=== PATIENT | male | born 1945 | race Caucasian/White ===

== ENCOUNTER → 2016-03-28 | Outpatient (CLI) | payer OTHER, MEDICARE ==
[2016-03-28 08:40] LABS: HEMOGLOBIN A1C 7.07 % (4.2-6.0); MEAN BLOOD GLUCOSE (CALC) 149.431 mg/dL
[2016-03-28 08:49] LABS: LDL CHOLESTEROL,CALCULATED 108.6 mg/dL
[2016-03-28 08:50] LABS: ASPARTATE AMINO TRANSFERASE 20 IU/L (21-57); BILIRUBIN,TOTAL 1.2 mg/dL (0.3-1.2); BLOOD UREA NITROGEN 10 mg/dL (7-22); BUN/CREATININE RATIO 14.28 (6-20); CALCIUM 9.4 mg/dL (8.7-10.7); CHLORIDE 104 meq/L (98-112); CREATININE 0.7 mg/dL (0.70-1.50); EST GLOMERULAR FILTRATION > 60 (>60 ml/min/1.73m(2)); GLUCOSE 150 mg/dL (78-110); POTASSIUM 4.3 meq/L (3.8-5.2); SODIUM 138 meq/L (135-145); TOTAL PROTEIN 6.8 g/dL (6.1-8.0)
== END ==
LOC: MOB LAB 07:54
PROVIDERS: ATTEND Family Medicine
DX: E11.9 Type 2 diabetes mellitus without complications (principal); E78.5 Hyperlipidemia, unspecified; I10 Essential (primary) hypertension; R53.82 Chronic fatigue, unspecified; R41.3 Other amnesia; Z86.73 Personal history of transient ischemic attack (TIA), and cerebral infarction without residual deficits
CPT/HCPCS: 36415; 80053; 80061; 83036; 99214; G0463

== ENCOUNTER → 2016-04-18 | Outpatient (CLI) | payer OTHER, MEDICARE | LOC: MMPC 10:00 | PROVIDERS: ATTEND Podiatrist Foot & Ankle Surgery | DX: B35.1 Tinea unguium (principal); L60.3 Nail dystrophy; E11.9 Type 2 diabetes mellitus without complications | CPT/HCPCS: 11720 ×2; G0463 ==

== ENCOUNTER → 2016-06-26 | Outpatient (CLI) | payer OTHER, MEDICARE ==
[2016-06-26 07:04] LABS: BASOPHILS # (AUTO) 0.04 10*3/UL; BASOPHILS % (AUTO) 0.6 % (0-1); EOSINOPHILS # (AUTO) 0.41 10*3/UL; EOSINOPHILS % (AUTO) 5.8 % (0-8); HEMATOCRIT 42.1 % (42.0-52.0); HEMOGLOBIN 15.2 g/dL (14.0-18.0); LYMPHOCYTES # (AUTO) 2.03 10*3/uL; MEAN CORPUSCULAR HGB CONC 36.1 g/dL (33-37); MEAN CORPUSCULAR VOLUME 85.9 FL (80-90); MEAN PLATELET VOLUME 10.4 FL (7.4-12.2); MONOCYTES # (AUTO) 0.66 10*3/UL (0.3-0.8); MONOCYTES % (AUTO) 9.3 % (5-15); NEUTROPHILS # (AUTO) 3.94 10*3/UL; NEUTROPHILS % (AUTO) 55.6 % (50-80)
[2016-06-26 07:06] LABS: PLATELET MORPHOLOGY COMMENT NORMAL MORPHOLOGY (NORM); RBC MORPHOLOGY COMMENT NORMAL MORPHOLOGY (NORM); WBC MORPHOLOGY COMMENT NORMAL MORPHOLOGY (NORM)
[2016-06-26 07:11] LABS: HEMOGLOBIN A1C 7.19 % (4.2-6.0)
[2016-06-26 07:21] LABS: BUN/CREATININE RATIO 17.14 (6-20); LDL CHOLESTEROL,CALCULATED 86.4 mg/dL; SERUM ALBUMIN 3.8 g/dL (3.5-4.8)
[2016-06-26 07:55] LABS: FREE T4 (FREE THYROXINE) 1.3 ng/dL (0.93-1.71)
[2016-06-26 07:56] LABS: VITAMIN D 25-HYDROXY 38.8 NG/ML (30-100)
[2016-06-26 07:57] LABS: ERYTHROCYTE SEDIMENTATION RATE 2 MM/HR (0-15)
== END ==
LOC: LAB 06:44
PROVIDERS: ATTEND Family Medicine
DX: E11.9 Type 2 diabetes mellitus without complications (principal); E78.5 Hyperlipidemia, unspecified; I10 Essential (primary) hypertension; R41.3 Other amnesia; R53.82 Chronic fatigue, unspecified; Z86.73 Personal history of transient ischemic attack (TIA), and cerebral infarction without residual deficits
CPT/HCPCS: 36415; 80053; 80061; 82306; 82607; 83036; 83880; 84439; 84443; 85025; 85652; G0103; 99213

== ENCOUNTER → 2016-07-18 | Outpatient (CLI) | payer OTHER, MEDICARE | LOC: MMPC 10:00 | PROVIDERS: ATTEND Podiatrist Foot & Ankle Surgery | DX: B35.1 Tinea unguium (principal); E11.9 Type 2 diabetes mellitus without complications | CPT/HCPCS: 99212; G0463 ==

== ENCOUNTER 2016-08-11 07:36 | Inpatient (IN) | payer OTHER, MEDICARE ==
[2016-08-11] MEDS ORDERED: Sodium Chloride 0.9% 1,000 ML PRIMARY IV ONE (07:59)
[2016-08-11] MEDS ORDERED: NORMAL SALINE 10 ML SYRINGE FLUSH IVP PRN ×2 (07:59→10:48)
[2016-08-11 08:36] LABS: HEMOGLOBIN 16.2 g/dL (14.0-18.0); RED BLOOD COUNT 5.31 10^6/uL (4.70-6.10)
[2016-08-11 08:37] LABS: HEMATOCRIT 45.7 % (42.0-52.0); MEAN CORPUSCULAR HEMOGLOBIN 30.5 PG (27-31); MEAN CORPUSCULAR HGB CONC 35.4 g/dL (33-37); MEAN CORPUSCULAR VOLUME 86.1 FL (80-90); MEAN PLATELET VOLUME 10.8 FL (7.4-12.2)
[2016-08-11 08:38] LABS: BASOPHILS # (AUTO) 0.03 10*3/UL; BASOPHILS % (AUTO) 0.2 % (0-1); EOSINOPHILS # (AUTO) 0.04 10*3/UL; EOSINOPHILS % (AUTO) 0.3 % (0-8); MONOCYTES # (AUTO) 0.92 10*3/UL (0.3-0.8); MONOCYTES % (AUTO) 7.4 % (5-15); NEUTROPHILS # (AUTO) 10.39 10*3/UL; NEUTROPHILS % (AUTO) 83.1 % (50-80); PLATELET MORPHOLOGY COMMENT NORMAL MORPHOLOGY (NORM); RBC MORPHOLOGY COMMENT NORMAL MORPHOLOGY (NORM); WBC MORPHOLOGY COMMENT NORMAL MORPHOLOGY (NORM)
[2016-08-11 08:41] LABS: BLOOD UREA NITROGEN 19 mg/dL (7-22); BUN/CREATININE RATIO 21.11 (6-20)
[2016-08-11 08:42] LABS: CALCIUM 9.2 mg/dL (8.7-10.7)
[2016-08-11 08:43] LABS: C-REACTIVE PROTEIN 3.2 mg/dL (0.0-0.9); MAGNESIUM 0.9 mg/dL (1.6-2.4)
[2016-08-11] MEDS ORDERED: Ertapenem Inj 1 GM in Sodium Chloride 0.9% 100 ML IV ONE (09:07)
--- NOTE | 2016-08-11 09:15 | DI ---
HISTORY: Cough and rales on the right side. COMPARISON: 10/02/2015. TECHNIQUE: Two (2) images were obtained. FINDINGS: There is dense consolidation in the right perihilar region extending into the right mid an d lower zones. The cardiac silhouette is not enlarged. Midline sternotomy noted. Lower cervical spine ACDF is part ially imaged. IMPRESSION: 1. There is dense consolidation in the right perihilar region extending into the right mid and lower zones. Follow-up to resolution is warranted. 2. Midline sternotomy noted. 3. Lower cervical spine ACDF is partially imaged.
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
[2016-08-11 10:34] LABS: COLOR,URINE YELLOW; URINE SAMPLE TYPE CLEAN CATCH URINE
[2016-08-11 10:35] LABS: BILIRUBIN,URINE NEGATIVE (NEG); CLARITY,URINE SLIGHTLY CLOUDY (CLEAR); GLUCOSE, URINE (UA) 500 mg/dL (NEG); NITRATE,URINE NEGATIVE (NEG); OCCULT BLOOD,URINE NEGATIVE (NEG); PH,URINE 5.5 (5.0-8.5); PROTEIN,URINE TRACE mg/dl (NEG); UROBILINOGEN,URINE 0.2 EU/dL (0.2)
[2016-08-11] MEDS ORDERED: ONDANSETRON 4 MG/2 ML VIAL IV PRN (10:48)
[2016-08-11] MEDS ORDERED: LIDOCAINE W/ SODIUM BICARB 0.5 ML SYR SUBD PRN (10:48)
[2016-08-11] MEDS ORDERED: ALBUTEROL SULFATE 2.5 MG/3 ML NEB PRN (10:48)
--- NOTE | 2016-08-11 11:51 | DI ---
HISTORY: Cough and dyspnea with high risk for PE. COMPARISON: 10/02/2015. TECHNIQUE: CT images were obtained through the chest with IV contrast. FINDINGS: There is diffuse airspace disease in the right lung. There is no pulmonary embolism. There is a large consolidation in the right lower lobe most consistent with pneumonia. There are some calcified pleural plaques in the right lung base medially. There are multiple coronary artery calcifications. Diffuse degenerative changes of the spine. IMPRESSION: 1. No evidence of pulmonary embolism. 2. Large right lower lobe pneumonia.
[2016-08-11] MEDS ORDERED: Clindamycin 900mg (Premix) 900 MG in Dextrose 1 BAG IV SCH (12:00)
[2016-08-11] MEDS: Calcium/Vit D 600mg/400u Tab 1 TAB TABLET PO SCH (12:37)
[2016-08-11] MEDS: Beta Carot W/Vit E,C,Min Tab 1 TAB TAB PO SCH ×2 (12:38→20:27)
[2016-08-11] MEDS: ASPIRIN 81 MG (BABY) CHEWABLE TABLET PO SCH (12:38)
[2016-08-11] MEDS: cefTRIAXone Inj 2 GM in Sodium Chloride 0.9% 100 ML IV SCH (12:42)
[2016-08-11] MEDS ORDERED: metroNIDAZOLE 500mg (Premix) 500 MG in Premix 1 BAG IV SCH (13:00)
--- NOTE | 2016-08-11 13:08 | PDOC ---
History and Physical - History of Present Illness Date and Time of Service: 08/03/2016, 1305 Chief Complaint: Chills and weakness History of Present Illness: This a very pleasant 71-year-old male who has a history of stroke with subsequent confusion and left hemiplegia, mild, diabetes mellitus type II, hypertension, and dementia. He comes in today accompanied by his as he was complaining of being very chilled and cold and weak. He has had this happen before and has been diagnosed with pneumonia in the past. On his prior admission for pneumonia in 2015, the patient was found to have some aspiration problems and did some therapy to try and help those issues. He does not report a lot of coughing or choking at home when he eats, and his also states that she does not notice this at all. I had the patient actually visit with surgery regarding what I thought was a paraesophageal hernia, but actually turned out to be a hiatal hernia with Schatzki's ring. The patient was not having any swallowing difficulties at that time and no EGD or dilation was done. The actual swallow evaluation on the radiology site showed no aspiration in September 2015 on my review of the record. Today, the patient was found to have a very large right lower lobe pneumonia on chest x-ray and CT scan here today. He was given a dose of Invanz with the thought that this could be an aspiration pneumonia although it looks fairly lobar to me and looks very diffuse. The patient does not normally on oxygen but was found to be hypoxic here. Blood cultures and been drawn and are pending. Patient does feel slightly better after interventions in the emergency room. He did not try taking prior to coming in for evaluation and his states she didn't try anything prior to bringing him into the emergency room today. The symptoms came on very suddenly. The patient does not smoke and has not smoked in the past. The patient's noticed that the patient had a cough with creamy-like phlegm over the past few days. The patient and his state that he is up-to-date with Pneumovax and with his flu shot. Past Medical History Medical History: 1. Diabetes mellitus type II. 2. History of cerebrovascular accident with left-sided weakness. 3. Confusion, question dementia. No change on Aricept. 4. Hypertension. 5. Coronary artery disease status post stent in the past. 6. obstructive sleep apnea with non-tolerance of CPAP therapy. 7. Status post aortic valve replacement (bovine) Surgical History: 1. Coronary stent placed. 2. Aortic valve replacement. 3. Back surgery. 4. Knee replacement on the right side Pertinent Family History: Significant for congestive heart failure in his mother and history of stroke in his sister Past Social History: Does not smoke or drink. for 35 years. Has children described as healthy. Tobacco Use: Never Smoker Substance Use Type: None Alcohol Use: None Medication / Allergies Home Medications: Home Medications Medication Instructions Recorded Confirmed Type Aspirin [Baby Aspirin] 2 tab ORAL QD tab 09/05/10 08/11/16 History Diphenhydramine HCl [Benadryl] 1 cap PO HS 01/31/12 08/11/16 History Docusate Sodium [Colace] 1 cap ORAL BID capsule 01/31/12 08/11/16 History Multivitamin [Daily Vitamin] 1 tab ORAL QD tab 01/31/12 08/11/16 History Calcium Carb & Citrate/Vit D3 1 each PO DAILY 09/10/12 08/11/16 History [Calcium + D3 ER Tablet] Walker [Ultra-Light Rollator] 1 each MC ONCE #1 each 10/26/14 08/11/16 Clinic Vit C/E/Zn/Coppr/Lutein/Zeaxan 1 each PO BID cap 06/26/15 08/11/16 History [Preservision Areds 2 Softgel] Clotrimazole 1 applic TOPICAL BID #60 tube 09/25/15 08/11/16 Clinic Ciclopirox 6.6 ml TOPICAL DAILY #1 bottle 01/25/16 08/11/16 Clinic Terbinafine HCl [Terbinafine] 15 gm TOPICAL BID #1 tube 01/25/16 08/11/16 Clinic Metoprolol Tartrate 1 tab ORAL BID #180 tab 03/04/16 08/11/16 Clinic Amlodipine Besylate [Norvasc] 1 tab PO QD #90 tab 05/14/16 08/11/16 Clinic Omeprazole 1 cap PO QHS #90 cap 05/14/16 08/11/16 Clinic Pravastatin Sodium [Pravachol] 1 tab PO QHS #90 tab 05/14/16 08/11/16 Clinic Solifenacin Succinate [Vesicare] 1 tab ORAL QD #90 tab 05/14/16 08/11/16 Clinic Dapagliflozin Propanediol [Farxiga] 5 mg PO QD #90 tab 06/07/16 08/11/16 Clinic Donepezil HCl [Aricept] 23 mg PO DAILY #90 tab 06/07/16 08/11/16 Clinic Finasteride 5 mg PO DAILY #90 tab 06/07/16 08/11/16 Clinic Linagliptin/Metformin HCl 1 tab PO BID #180 tab 06/07/16 08/11/16 Clinic [Jentadueto 2.5 Mg-1000 Mg Tab] Losartan Potassium 1 tab PO DAILY #90 tab 06/07/16 08/11/16 Clinic Tamsulosin HCl 1 tab PO QHS #90 tab 06/07/16 08/11/16 Clinic Allergies/Adverse Reactions: Allergies Allergy/AdvReac Type Severity Reaction Status Date / Time Sulfa (Sulfonamide Allergy PT UNSURE Verified 08/11/16 11:20 Antibiotics) Review of Systems - Review of Systems All Systems: Reviewed & No Additional Complaints Except as Stated (With a 12 point review systems and it was negative other than that discussed in the history of present illness and that noted below.) - Constitutional Constitutional: REPORTS: Fever/Chills, Fatigue, Weakness - Respiratory Respiratory: REPORTS: Cough (For the past few days) - Cardiovascular Cardiovascular: REPORTS: Negative System Review - Gastrointestinal Gastrointestinal / Abdominal: REPORTS: Negative System Review - Genitourinary Genitourinary: REPORTS: Negative System Review - Musculoskeletal Musculoskeletal: REPORTS: Negative System Review - Hematlogic / Lymphatic Hematologic / Lymphatic: REPORTS: Other (Edema on left lower extremity over the past year.) - Neurological Neurologic: REPORTS: Memory Loss, Difficulty Walking (Uses a cane to ambulate. Feels weak on the left side. States it's from a stroke in the past.) Exam - Vitals Vital Signs: Vital Signs Respiratory Rate 22 Pulse Ox 91 Oxygen Flow Rate 3 Oxygen Delivery Method Nasal Cannula Height 5 ft 11 in Weight 245 lb Vital Signs - Last Taken Temperature 98.5 F 08/11/16 07:51 Pulse Rate 80 08/11/16 07:51 Respiratory Rate 22 08/11/16 10:47 Blood Pressure 133/75 08/11/16 07:51 Pulse Ox 91 08/11/16 10:48 Currently on 3 L per nasal cannula - General General Appearance: POSITIVE: No Acute Distress, Cooperative, Obese - Head Head Exam: POSITIVE: Normal Inspection, Normocephalic, Atraumatic - Eye Eye Exam: POSITIVE: No Scleral Icterus - ENT ENT Exam: POSITIVE: Mucous Membranes Moist - Neck Neck Exam: POSITIVE: Normal Inspection, No Tenderness, No Thyromegaly - Respiratory Respiratory Exam: POSITIVE: Breathing Non Labored, Normal to Percussion and Palpation, Crackles (Right side) - Cardiovascular Cardiovascular Exam: POSITIVE: RRR, No Murmur, No Clicks, No Gallops, No Rubs, No JVD - GI/Abdominal GI/Abdominal Exam: POSITIVE: Normal Bowel Sounds, Non Tender, Non Distended, Soft - Rectal Rectal Exam: POSITIVE: Deferred - External Exam: POSITIVE: Deferred Exam: POSITIVE: Deferred - Extremities Extremities Exam: POSITIVE: No Clubbing Present, No Cyanosis Present, +1 Edema - Back Back Exam: POSITIVE: No CVA Tenderness - Neurological Neurological Exam: POSITIVE: Alert, Oriented x 3, No Facial Droop, Speech Intact / Clear, Moves All Extremities Equally - Psychiatric Psychiatric Exam: POSITIVE: Normal Affect, Normal Mood - Integumentary Integumentary Exam: POSITIVE: Normal Color, Warm, Dry, Intact - Central Line Examination Central Line Present on Admission: No Results - Labs CBC and BMP: 08/11/16 07:30 08/11/16 07:30 Labs - Last 24 Hours: Laboratory Results 08/11/16 08/11/16 08/11/16 Range/Units 07:30 07:59 08:10 WBC 12.51 H (4.8-10.8) 10^3/uL RBC 5.31 (4.70-6.10) 10^6/uL Hgb 16.2 (14.0-18.0) g/dL Hct 45.7 (42.0-52.0) % MCV 86.1 (80-90) FL MCH 30.5 (27-31) PG MCHC 35.4 (33-37) g/dL RDW Std Deviation 44.0 (39-50) fL RDW Coeff of Mk 14.0 (11.5-14.5) % Plt Count 218 (140-350) 10*3/uL MPV 10.8 (7.4-12.2) FL Immature Gran % (Auto) 0.2 (0-5) % Neut % (Auto) 83.1 H (50-80) % Lymph % (Auto) 8.8 L (10-50) % [place] % (Auto) 7.4 (5-15) % Eos % (Auto) 0.3 (0-8) % Baso % (Auto) 0.2 (0-1) % Immature Gran # (Auto) 0.03 10*3/UL Neut # (Auto) 10.39 10*3/UL Lymph # (Auto) 1.10 10*3/uL [place] # (Auto) 0.92 H (0.3-0.8) 10*3/UL Eos # (Auto) 0.04 10*3/UL Baso # (Auto) 0.03 10*3/UL WBC Morphology Comment Normal morphology (NORM) Plt Morphology Comment Normal morphology (NORM) RBC Morph Comment Normal morphology (NORM) D-Dimer 4.05 H (0.00-0.59) mg/L Sodium 140 (135-145) meq/L Potassium 3.7 L (3.8-5.2) meq/L Chloride 105 (98-112) meq/L Carbon Dioxide 21 L (23-33) meq/L Anion Gap 14 (5-20) BUN 19 (7-22) mg/dL Creatinine 0.9 (0.70-1.50) mg/dL Estimated GFR Fire Crew Worker BUN/Creatinine Ratio 21.11 H (6-20) Glucose 221 H (78-110) mg/dL Calculated Osmolality 298.0 H (267-292) mOsm/kg Lactic Acid 1.4 (0.70-2.10) MMOL/L Calcium 9.2 (8.7-10.7) mg/dL Magnesium 0.9 L (1.6-2.4) mg/dL Total Bilirubin 1.1 (0.3-1.2) mg/dL AST 26 (21-57) IU/L ALT 23 (21-72) IU/L Alkaline Phosphatase 91 (38-126) IU/L C-Reactive Protein 3.2 H (0.0-0.9) mg/dL Total Protein 7.1 (6.1-8.0) g/dL Albumin 4.0 (3.5-4.8) g/dL Globulin 3.1 (2.50-4.10) g/dL Albumin/Globulin Ratio 1.20 L (1.3-2.0) mg/g Ur Collection Type Clean catch urine Urine Color Yellow Urine Clarity Slightly cloudy (CLEAR) Urine pH 5.5 (5.0-8.5) Ur Specific [place] 1.005 (1.005-1.030) Urine Protein Trace (NEG) mg/dl Urine Glucose (UA) 500 (NEG) mg/dL Urine Ketones 40 (NEG) Urine Occult Blood Negative (NEG) Urine Nitrate Negative (NEG) Urine Bilirubin Negative (NEG) Urine Urobilinogen 0.2 (0.2) EU/dL Ur Leukocyte Esterase Negative (NEG) Ur Culture Indicated? Culture not set - Imaging Status: Image Reviewed by Me (Chest x-ray, on my view, positive for right-sided lower lobe pneumonia. CT scan, on my view of the chest, positive for pneumonia. Radiologist stated there was no blood clot.) Assessment and Plan - Patient Problems (1) Community acquired pneumonia Current Visit: Yes Status: Acute (2) Diabetes mellitus type II, controlled Current Visit: Yes Status: Acute Qualifiers: Diabetes mellitus complication status: without complication Diabetes mellitus terminal worker insulin use: without mcfp use Qualified Description : Controlled type 2 diabetes mellitus without complication, without long-term current use of insulin Qualifier Code(s): (E11.9) Type 2 diabetes mellitus without complications (3) History of stroke Current Visit: Yes Status: Acute (4) Coronary artery disease Current Visit: Yes Status: Chronic Qualifiers: Coronary Disease-Associated Artery/Lesion type: [place] artery [place] vs. transplanted heart: [place] heart Associated angina: without angina Qualified Description: Coronary artery disease involving [place] coronary artery of [place] heart without angina pectoris Qualifier Code(s): (I25.10) Atherosclerotic heart disease of [place] coronary artery without angina pectoris (5) Hypertension Current Visit: Yes Status: Chronic Qualifiers: Hypertension type: essential hypertension Qualified Description: Essential hypertension Qualifier Code(s): (I10) Essential (primary) hypertension (6) Dementia Current Visit: Yes Status: Acute Qualifiers: Dementia type: Alzheimer's disease Alzheimer's disease onset: early- onset Dementia behavioral disturbance: without behavioral disturbance Qualified Description: Early onset Alzheimer's dementia without behavioral disturbance Qualifier Code(s): (G30.0) Alzheimer's disease with early onset, (F02.80) Dementia in other diseases classified elsewhere without behavioral disturbance (7) Schatzki's ring Current Visit: Yes Status: Acute - Assessment / Plan Additional Assessment/Plan Details: This patient is admitted with hypoxia, pneumonia, and a class III pneumonia by pneumonia severity index. The case is sort of complex in the setting that he has a Schatzki's ring that's known by prior barium esophagram, but he does not have any symptoms of dysphasia in has not had any EGD or dilation. He is on a proton pump inhibitor but we really have no evidence that he has acid reflux disease and he does not complain of this. The proton pump inhibitor could be putting him at risk of developing pneumonias. Think it safe to stop at this point. If dysphasia develops from the Schatzki's ring, then the patient should proceed with an EGD with dilation. Otherwise I think this is a community-acquired pneumonia and probably not an aspiration pneumonia. There is no described nausea or vomiting at home and again the patient does not choke or cough or have trouble swallowing. He had a swallow evaluation in September 2015 that did not reveal any evidence of aspiration. Given his dementia, and like to stop some of his medications. Given the CT scan today, hold diabetic oral medications, particular metformin during the next 48 hours, but may even make sense to just use metformin along with insulin for the patient in the long-term. I'll have correction dose scale written for the patient. Check labs tomorrow. I discussed CODE STATUS, patient is full code. Oxygen and breathing therapies as necessary for relief of shortness breath and a cough. Plan above discussed with patient and his and they agreed.
[2016-08-11] MEDS ORDERED: Glucagon Inj Vial 1 MG/ML VIAL IM PRN (17:01)
[2016-08-11] MEDS ORDERED: Insulin Sliding Scale Protocol SUBCUT PRN (17:01)
[2016-08-11] MEDS ORDERED: DEXTROSE 31 GM GEL PO PRN (17:01)
[2016-08-11] MEDS ORDERED: DEXTROSE 50%-WATER SYRINGE 50 ML SYRINGE IVP PRN (17:01)
[2016-08-11] MEDS: Insulin Lispro Flexpen 300 UNIT/3 ML INSULN.PEN SUBCUT SCH (20:27)
[2016-08-11] MEDS: DOCUSATE 100 MG CAPSULE PO SCH (20:27)
[2016-08-11] MEDS: TAMSULOSIN 0.4 MG CAPSULE PO SCH (20:27)
[2016-08-11] MEDS ORDERED: OMEPRAZOLE 20 MG CAPSULE PO SCH (21:00)
[2016-08-12 05:41] LABS: BASOPHILS # (AUTO) 0.03 10*3/UL; BASOPHILS % (AUTO) 0.2 % (0-1); EOSINOPHILS # (AUTO) 0.14 10*3/UL; EOSINOPHILS % (AUTO) 0.9 % (0-8); HEMATOCRIT 39.3 % (42.0-52.0); HEMOGLOBIN 13.7 g/dL (14.0-18.0); LYMPHOCYTES # (AUTO) 1.88 10*3/uL; MEAN CORPUSCULAR HEMOGLOBIN 30.5 PG (27-31); MEAN CORPUSCULAR HGB CONC 34.9 g/dL (33-37); MEAN CORPUSCULAR VOLUME 87.5 FL (80-90); MONOCYTES # (AUTO) 1.01 10*3/UL (0.3-0.8); MONOCYTES % (AUTO) 6.4 % (5-15); NEUTROPHILS # (AUTO) 12.72 10*3/UL; NEUTROPHILS % (AUTO) 80.5 % (50-80); RED BLOOD COUNT 4.49 10^6/uL (4.70-6.10)
[2016-08-12 05:43] LABS: PLATELET MORPHOLOGY COMMENT NORMAL MORPHOLOGY (NORM); RBC MORPHOLOGY COMMENT NORMAL MORPHOLOGY (NORM); WBC MORPHOLOGY COMMENT NORMAL MORPHOLOGY (NORM)
[2016-08-12 05:50] LABS: BUN/CREATININE RATIO 25.71 (6-20); CALCIUM 8.6 mg/dL (8.7-10.7)
[2016-08-12] MEDS: Insulin Lispro Flexpen 300 UNIT/3 ML INSULN.PEN SUBCUT SCH ×4 (08:04→21:08)
[2016-08-12] MEDS: ASPIRIN 81 MG (BABY) CHEWABLE TABLET PO SCH (08:57)
[2016-08-12] MEDS: Calcium/Vit D 600mg/400u Tab 1 TAB TABLET PO SCH (08:57)
[2016-08-12] MEDS: FINASTERIDE 5 MG TABLET PO SCH (08:58)
[2016-08-12] MEDS: DOCUSATE 100 MG CAPSULE PO SCH ×2 (08:58→21:07)
[2016-08-12] MEDS: Beta Carot W/Vit E,C,Min Tab 1 TAB TAB PO SCH ×2 (08:58→21:07)
[2016-08-12] MEDS: Multivitamin Tab 1 TAB PO SCH (08:58)
[2016-08-12] MEDS ORDERED: DONEPEZIL HCL 23 MG PO SCH (09:00)
[2016-08-12] MEDS ORDERED: POTASSIUM CHLORIDE 20 MEQ TAB PO ONE (10:48)
[2016-08-12] MEDS: cefTRIAXone Inj 2 GM in Sodium Chloride 0.9% 100 ML IV SCH (11:16)
--- NOTE | 2016-08-12 11:55 | DI ---
HISTORY: Edema. Bilateral lower extremity swelling. TECHNIQUE: Doppler examination of the deep veins of the lower extremities was performed with herbert alix maneuvers. FINDINGS: Doppler demonstrates normal respiratory variation. There is an appropriate response to co mpression maneuvers. There is no evidence of intraluminal thrombus. IMPRESSION: 1. There is no evidence of deep venous thrombosis in the examined lower extremity veins.
--- NOTE | 2016-08-12 15:24 | PDOC(PROG) ---
Date and Time of Service: 08/12/2016, 1521 Interval History: No chest pain. Feels a lot better than yesterday. No chills. No fever. Does not feel short of breath. Eating during my exam at lunch today and he was eating without any choking or difficulty on a regular diet. Objective : Data - Labs CBC and BMP: 08/12/16 04:17 08/12/16 04:17 Labs - Last 24 Hours: Laboratory Results 08/12/16 Range/Units 04:17 WBC 15.80 H (4.8-10.8) 10^3/uL RBC 4.49 L (4.70-6.10) 10^6/uL Hgb 13.7 L (14.0-18.0) g/dL Hct 39.3 L (42.0-52.0) % MCV 87.5 (80-90) FL MCH 30.5 (27-31) PG MCHC 34.9 (33-37) g/dL RDW Std Deviation 44.7 (39-50) fL RDW Coeff of Mk 14.3 (11.5-14.5) % Plt Count 200 (140-350) 10*3/uL MPV 11.0 (7.4-12.2) FL Immature Gran % (Auto) 0.1 (0-5) % Neut % (Auto) 80.5 H (50-80) % Lymph % (Auto) 11.9 (10-50) % [place] % (Auto) 6.4 (5-15) % Eos % (Auto) 0.9 (0-8) % Baso % (Auto) 0.2 (0-1) % Immature Gran # (Auto) 0.02 10*3/UL Neut # (Auto) 12.72 10*3/UL Lymph # (Auto) 1.88 10*3/uL [place] # (Auto) 1.01 H (0.3-0.8) 10*3/UL Eos # (Auto) 0.14 10*3/UL Baso # (Auto) 0.03 10*3/UL WBC Morphology Comment Normal morphology (NORM) Plt Morphology Comment Normal morphology (NORM) RBC Morph Comment Normal morphology (NORM) Sodium 138 (135-145) meq/L Potassium 3.7 L (3.8-5.2) meq/L Chloride 105 (98-112) meq/L Carbon Dioxide 23 (23-33) meq/L Anion Gap 10 (5-20) BUN 18 (7-22) mg/dL Creatinine 0.7 (0.70-1.50) mg/dL Estimated GFR (>60 ml/min/1.73m(2)) BUN/Creatinine Ratio 25.71 H (6-20) Glucose 161 H (78-110) mg/dL Calculated Osmolality 290.0 (267-292) mOsm/kg Calcium 8.6 L (8.7-10.7) mg/dL - Imaging Ultrasound Status: Report Reviewed by Me (Negative for lower extremity DVT.) Objective : Exam - General General Appearance: No Acute Distress, Cooperative Additional General Exam Details: Vital Signs - Last Taken Temperature 97.1 F 08/12/16 12:19 Pulse Rate 84 08/12/16 12:19 Respiratory Rate 16 08/12/16 12:19 Blood Pressure 142/69 08/12/16 12:19 Pulse Ox 91 08/12/16 12:19 Currently 1-2 L per nasal cannula oxygen - Eye Eye Exam: No Scleral Icterus - Respiratory Respiratory Exam: Breathing Non Labored, Crackles (Improved over yesterday) - Cardiovascular Cardiovascular Exam: RRR, No Murmur, No Clicks, No Gallops, No Rubs, No JVD - GI/Abdominal GI/Abdominal Exam: Normal Bowel Sounds, Non Tender, Non Distended, Soft - Extremities Extremities Exam: No Clubbing Present, No Cyanosis Present, +1 Edema (In the lower extremities, left greater than right. This could be a result of prior stroke.) - Neurological Neurological Exam: Alert, No Facial Droop, Speech Intact / Clear, Moves All Extremities Equally Additional Neurological Exam Details: Patient appears to move all extremity is equally. Perhaps subtle weakness on the left side versus the right. - Psychiatric Psychiatric Exam: Normal Affect, Normal Mood Assessment and Plan - Patient Problems (1) Community acquired pneumonia Current Visit: Yes Status: Acute Comment: On day 2 of antibiotic therapy. I discontinued Zithromax will continue with Rocephin for now. (2) Diabetes mellitus type II, controlled Current Visit: Yes Status: Acute Qualifiers: Diabetes mellitus complication status: without complication Diabetes mellitus mcfp insulin use: without computer terminal operator use Qualified Description : Controlled type 2 diabetes mellitus without complication, without long-term current use of insulin Qualifier Code(s): (E11.9) Type 2 diabetes mellitus without complications (3) History of stroke Current Visit: Yes Status: Acute (4) Coronary artery disease Current Visit: Yes Status: Chronic Qualifiers: Coronary Disease-Associated Artery/Lesion type: [place] artery [place] vs. transplanted heart: [place] heart Associated angina: without angina Qualified Description: Coronary artery disease involving [place] coronary artery of [place] heart without angina pectoris Qualifier Code(s): (I25.10) Atherosclerotic heart disease of [place] coronary artery without angina pectoris (5) Hypertension Current Visit: Yes Status: Chronic Qualifiers: Hypertension type: essential hypertension Qualified Description: Essential hypertension Qualifier Code(s): (I10) Essential (primary) hypertension (6) Dementia Current Visit: Yes Status: Acute Qualifiers: Dementia type: Alzheimer's disease Alzheimer's disease onset: early- onset Dementia behavioral disturbance: without behavioral disturbance Qualified Description: Early onset Alzheimer's dementia without behavioral disturbance Qualifier Code(s): (G30.0) Alzheimer's disease with early onset, (F02.81) Dementia in other diseases classified elsewhere with behavioral disturbance (7) Schatzki's ring Current Visit: Yes Status: Acute - Assessment / Plan Additional Assessment/Plan Details: Continue Rocephin/oxygen as necessary/breathing therapies as necessary. I think his edema is dependent edema, reassuring that the ultrasound is negative. I discussed AMANDA coffey with the patient's and will leave a prescription for her to waste picker for the patient. Patient was present for the examination and discussion as well. Patient is already up-to-date on his influenza and Pneumovax status in terms of vaccines. Continue PT and OT. Hopefully in a day or 2, we can consider switching to by mouth antibiotics and finishing a 7 day course of antibiotics.
[2016-08-12] MEDS: TAMSULOSIN 0.4 MG CAPSULE PO SCH (21:07)
[2016-08-12] MEDS: Insulin Glargine SoloStar Inj 100 UNIT/ML INSULN.PEN SUBCUT SCH (21:09)
[2016-08-13 05:03] LABS: BASOPHILS # (AUTO) 0.05 10*3/UL; BASOPHILS % (AUTO) 0.4 % (0-1); EOSINOPHILS # (AUTO) 0.33 10*3/UL; EOSINOPHILS % (AUTO) 2.6 % (0-8); HEMATOCRIT 40.1 % (42.0-52.0); HEMOGLOBIN 13.8 g/dL (14.0-18.0); LYMPHOCYTES # (AUTO) 1.78 10*3/uL; MEAN CORPUSCULAR HEMOGLOBIN 29.9 PG (27-31); MEAN CORPUSCULAR HGB CONC 34.4 g/dL (33-37); MEAN PLATELET VOLUME 10.1 FL (7.4-12.2); MONOCYTES # (AUTO) 1.02 10*3/UL (0.3-0.8); MONOCYTES % (AUTO) 7.9 % (5-15); NEUTROPHILS # (AUTO) 9.69 10*3/UL; RED BLOOD COUNT 4.61 10^6/uL (4.70-6.10)
[2016-08-13 05:04] LABS: PLATELET MORPHOLOGY COMMENT NORMAL MORPHOLOGY (NORM); RBC MORPHOLOGY COMMENT NORMAL MORPHOLOGY (NORM); WBC MORPHOLOGY COMMENT NORMAL MORPHOLOGY (NORM)
[2016-08-13 05:19] LABS: BLOOD UREA NITROGEN 11 mg/dL (7-22); BUN/CREATININE RATIO 18.33 (6-20); CALCIUM 8.9 mg/dL (8.7-10.7)
[2016-08-13] MEDS: Insulin Lispro Flexpen 300 UNIT/3 ML INSULN.PEN SUBCUT SCH ×4 (07:04→20:17)
--- NOTE | 2016-08-13 08:20 | PDOC(PROG) ---
Date and Time of Service: 08/13/2016 8:18 AM Interval History: Subjective Patient feels better, he said he came into the hospital because he had the chills and fever at home. He had some cough but he didn't think it was significant. Nothing is coming up. He is improving. He had a history of stroke in 2000 cause some weakness on the left side. Objective : Data - Labs CBC and BMP: 08/13/16 04:54 08/13/16 04:54 Labs - Last 24 Hours: Laboratory Results 08/13/16 Range/Units 04:54 WBC 12.91 H (4.8-10.8) 10^3/uL RBC 4.61 L (4.70-6.10) 10^6/uL Hgb 13.8 L (14.0-18.0) g/dL Hct 40.1 L (42.0-52.0) % MCV 87.0 (80-90) FL MCH 29.9 (27-31) PG MCHC 34.4 (33-37) g/dL RDW Std Deviation 45.0 (39-50) fL RDW Coeff of Mk 14.2 (11.5-14.5) % Plt Count 201 (140-350) 10*3/uL MPV 10.1 (7.4-12.2) FL Immature Gran % (Auto) 0.3 (0-5) % Neut % (Auto) 75.0 (50-80) % Lymph % (Auto) 13.8 (10-50) % [place] % (Auto) 7.9 (5-15) % Eos % (Auto) 2.6 (0-8) % Baso % (Auto) 0.4 (0-1) % Immature Gran # (Auto) 0.04 10*3/UL Neut # (Auto) 9.69 10*3/UL Lymph # (Auto) 1.78 10*3/uL [place] # (Auto) 1.02 H (0.3-0.8) 10*3/UL Eos # (Auto) 0.33 10*3/UL Baso # (Auto) 0.05 10*3/UL WBC Morphology Comment Normal morphology (NORM) Plt Morphology Comment Normal morphology (NORM) RBC Morph Comment Normal morphology (NORM) Sodium 138 (135-145) meq/L Potassium 3.6 L (3.8-5.2) meq/L Chloride 106 (98-112) meq/L Carbon Dioxide 21 L (23-33) meq/L Anion Gap 11 (5-20) BUN 11 (7-22) mg/dL Creatinine 0.6 L (0.70-1.50) mg/dL Estimated GFR [place] BUN/Creatinine Ratio 18.33 (6-20) Glucose 171 H (78-110) mg/dL Calculated Osmolality 288.0 (267-292) mOsm/kg Calcium 8.9 (8.7-10.7) mg/dL Objective : Exam - General General Appearance: No Acute Distress, Cooperative, Obese - Head Head Exam: Normal Inspection - Eye Eye Exam: Normal Appearance - ENT ENT Exam: Normal Exam - Neck Neck Exam: Normal Inspection - Respiratory Additional Respiratory Exam Details: Few crackles noted on the right side - Cardiovascular Cardiovascular Exam: RRR - GI/Abdominal GI/Abdominal Exam: Normal Bowel Sounds, Non Tender, Non Distended, Soft - Rectal Rectal Exam: Deferred - External Exam: Deferred - Extremities Additional Extremities Exam Details: Slight edema on the left lower leg - Back Back Exam: Normal Inspection - Neurological Neurological Exam: Alert, Oriented x 3, CN II-XII Intact Additional Neurological Exam Details: Subtle weakness noted on the left leg. - Psychiatric Psychiatric Exam: Normal Affect - Integumentary Integumentary Exam: Normal Color Assessment and Plan - Patient Problems (1) Community acquired pneumonia Current Visit: Yes Status: Acute Comment: Continue Rocephin, I added Zithromax. I think if things stable by tomorrow consider sending him home tomorrow. (2) Diabetes mellitus type II, controlled Current Visit: Yes Status: Acute Comment: He is on sliding scale and Lantus continue, I think he probably can resume his oral medications on discharge. Qualifiers: Diabetes mellitus complication status: without complication Diabetes mellitus longterm insulin use: without longterm use Qualified Description : Controlled type 2 diabetes mellitus without complication, without long-term current use of insulin Qualifier Code(s): (E11.9) Type 2 diabetes mellitus without complications (3) Coronary artery disease Current Visit: Yes Status: Chronic Comment: I think we can restart the pravastatin, will restart the beta sissy at a lower dosage. Qualifiers: Coronary Disease-Associated Artery/Lesion type: [place] artery [place] vs. transplanted heart: [place] heart Associated angina: without angina Qualified Description: Coronary artery disease involving [place] coronary artery of [place] heart without angina pectoris Qualifier Code(s): (I25.10) Atherosclerotic heart disease of [place] coronary artery without angina pectoris
[2016-08-13] MEDS: Calcium/Vit D 600mg/400u Tab 1 TAB TABLET PO SCH (08:52)
[2016-08-13] MEDS: DOCUSATE 100 MG CAPSULE PO SCH ×2 (08:53→20:16)
[2016-08-13] MEDS: Potassium Chloride Tab 10 MEQ TAB PO SCH (08:53)
[2016-08-13] MEDS: FINASTERIDE 5 MG TABLET PO SCH (08:53)
[2016-08-13] MEDS: Metoprolol TARTRATE Tab 25 MG TAB PO SCH ×2 (08:53→20:16)
[2016-08-13] MEDS: Beta Carot W/Vit E,C,Min Tab 1 TAB TAB PO SCH ×2 (08:53→20:16)
[2016-08-13] MEDS: ASPIRIN 81 MG (BABY) CHEWABLE TABLET PO SCH (08:53)
[2016-08-13] MEDS: Multivitamin Tab 1 TAB PO SCH (08:53)
[2016-08-13] MEDS: cefTRIAXone Inj 2 GM in Sodium Chloride 0.9% 100 ML IV SCH (10:07)
--- NOTE | 2016-08-13 11:27 | OT.PROG ---
Progress Note Progress Note: S: Pt stated he was in the [facility] and that he was riding on a train yesterday. O: Pt completed the MOCA assessment and scored in the following areas; Visuospacial/Executive 2/5, Naming 3/3, Attention 5/6, Language 2/3, Abstract 2/ 2, delayed Recall 2/5 and Orientation 3/6. Pt had an overall score of 19/30. A: Pt scored a 19/30 suggests a mild cognitive impairment. Pt would benefit from continued OT services for further cognitive assessment and strengthening/ endurance for mobility. P: Continue per POC
--- NOTE | 2016-08-13 11:36 | PTI REPORT ---
Thank you for the referral of Arvind Ndiaye. He was seen on 08/12/16 for an inpatient evaluation secondary to weakness and pneumonia. SUBJECTIVE: The patient is a 71-year-old male. According to a chart review, the patient was admitted yesterday after being brought in to the emergency room via his after complaints of being chilled cold and weak. The , who was present at the time of the evaluation, states the patient's onset of symptoms was very quick and she was concerned about pneumonia, which he has been diagnosed with in the past with similar symptoms. The patient denies any recent fall relating to being brought to the emergency room; however, the patient's states that she had fallen the day before being admitted. PAST MEDICAL HISTORY: Past medical history can be found in the patient's medical record. OBJECTIVE FINDINGS: General observations: The patient states generalized left sided weakness following a major stroke he had back in 2000. He states at this time he is feeling much better than he was yesterday when he was admitted to the hospital. His biggest complaint is feeling very very weak. Pain: The patient reports a generalized pain level in his left knee anywhere from a 4 to a 7/10 on the verbal analog scale (0=no pain, 10=worst pain) as the result of an orthopedic surgery. Bed mobility: The patient was able to perform bed mobility from supine to edge of bed with modified independence with the bed rails. Transfers: The patient was able to perform sit to stand transfers with stand by assist with the use of front wheeled walker for safety concerns. Ambulation: The patient was able to ambulate 100 feet continuously with front wheeled walker, gait belt, and contact guard assist as well as verbal cues for safety concerns of staying within the walker and proper hand placement on the walker. Strength: Bilateral lower extremity strength as tested in the seated position was generalized as 4/5 for the right lower extremity as compared to 4-/5 for the left side. Range of motion: The patient's range of motion is within functional limits, requiring occasional help from his spouse for lower extremity dressing. Balance: His dynamic balance with use of a front wheeled walker at best is fair , requiring tactile as well as verbal cues for staying within the walker and propre hand placement. ASSESSMENT: Problem List: Decreased safety awareness Decreased strength Decreased safety with generalized mobility Short-Term Goals: To be met by discharge from inpatient: Patient will be able to ambulate 300 feet or greater with appropriate assistive device for community ambulation. Patient will be able to ambulate 100 feet or greater with a single point cane like he was using prior to being admitted to the hospital for household ambulation. Patient will increase bilateral lower extremity strength by at least 1/2 a grade or more for independence with all ambulation and transfers. TREATMENT PLAN: Patient will be seen B.I.D during the week and one time per day over the weekend as an inpatient for pain relief modalities as needed, gait training, balance, neuromuscular reeducation, and general range of motion/strengthening exercises. INITIAL TREATMENT: Treatment today consisted of the initial evaluation followed by the patient ambulating over 100 feet continuously with his front wheeled walker, gait belt, and contact guard assistance. We attempted to initiate lower extremity exercises in his room; however, this had to be discharged due to medication, having his blood glucose taken, and his lunch arriving. We will focus tomorrow on balance training. MIGUEL
--- NOTE | 2016-08-13 12:48 | OTI REPORT ---
Thank you for the referral of Arvind Ndiaye. He was seen on 08/12/16 for an occupational therapy inpatient evaluation secondary to weakness and pneumonia. SUBJECTIVE: The patient is a 71-year-old male who was admitted on 08/11/16 secondary to pneumonia. The patient does have a history of stroke with left hemiplegia. The patient reports that he has left foot drop and this does get in the way at times. The patient came in cold and chilled. The patient lives at home with his Letha. She is available most of the time unless she has errands to run. He says he does not get out of the house too much. He does have two steps into the entrance of his home and he tries to come in and out of the garage where his vehicle is. He does have a walk in shower at home and a higher toilet. He does use a front wheeled walker. Prior to admission, the patient would do simple cooking and cleaning; his does the laundry, grocery shopping, and driving as the patient does not drive anymore. He says that he typically can dress himself. PAST MEDICAL HISTORY: Past medical history can be found in the patient's medical record. OBJECTIVE FINDINGS: Range of motion: Today the patient had within functional limits of active range of motion of the right shoulder, elbow, and wrist. On the left shoulder he had 0 to 110 degrees of shoulder flexion. Elbow and wrist range of motion were within functional limits. Strength: Strength on the right side was 4+/5 throughout. On the left side he had 4/5 for shoulder flexion and abduction within his available range and 4+/5 for elbow and wrist flexion and extension. Pain: The patient states that he does have a little bit of pain in his back, but overall he does pretty well. Activities of daily living: The patient is able to dress upper extremities independently after set up. The patient was able to don and doff socks independently. He does have a little bit of limited range of motion on the left side but is able to compensate and adapt quite nicely. Transfers: The patient requires min assist to come from sit to stand. Ambulation: The patient does ambulate with contact guard assist once in wheeled walker. The patient requires cues for his left foot at times as he does demonstrate some left foot drop. ASSESSMENT: Problem List: Decreased ability to perform transfers Patient may need cognitive assessment to address processing difficulties Decreased upper extremity strength Decreased functional transfers Short-Term Goals: To be met by discharge from inpatient: Patient will improve upper extremity strength to 5/5. Patient will be able to complete a shower independently without loss of balance. Patient will participate in some cognitive tests to assess his cognitive processing abilities at this point in time. Patient will be able to dress self including set up without loss of balance. Long-Term Goals: To be met following discharge from inpatient: Patient will be discharged home with assistance with higher level iADLs and independent with basic ADLs. TREATMENT PLAN: Patient will be seen B.I.D during the week and one time per day over the weekend as an inpatient to address the above goals and objectives. INITIAL TREATMENT: Treatment today consisted of the initial evaluation followed by the patient performing functional transfers, functional ambulation within the wheeled walker , and active range of motion and reaching activities. The patient did have decreased oxygen saturation after being engaged in activity x10 minutes; he did go down to 89% but recovered nicely in the 90-92% range within a 30 second time period. [facility]
--- NOTE | 2016-08-13 16:57 | PT.PROG ---
Progress Note Progress Note: S. Patient stated that He doesn't want to go to the therapy gym this morning, however was willing to do exercises in his room. O. Patient ambulated 150 feet around the nurses station then performed exercises in the form of; heel toe raises, marches, long arc quads, resisted knee flexion, pillow squeezes all x 10 bilaterally, sit to stands x 5. Patient was left in his chair with alarm and call light. A. Patient tolerated exercises fair, he is weak on his left side from a previous stroke. Patient is very impulsive and would continue to benefit from skilled therapy at this time. P. continue POC.
--- NOTE | 2016-08-13 17:05 | PT.PROG ---
Progress Note Progress Note: S. Patient stated that he is feeling a little better this afternoon. O. patient ambulated 175 feet to the therapy gym where he performed seated exercises in the form of; heel toe raises, marches, long arc quads, ball squeezes, clamshells, sit to stands all x 10 bilaterally. Patient used the nu- step x 10 minutes then ambulated 50 feet to the wheelchair and was returned to his room where he was left in his chair with alarm and call light. A. Patient Continues to be impulsive and require frequent verbal cues to stay on task and to use his walker properly. Patient would continue to benefit from skilled therapy at this time. P. Continue POC.
[2016-08-13] MEDS: Insulin Glargine SoloStar Inj 100 UNIT/ML INSULN.PEN SUBCUT SCH (20:16)
[2016-08-13] MEDS: TAMSULOSIN 0.4 MG CAPSULE PO SCH (20:16)
[2016-08-13] MEDS ORDERED: Pravastatin 80mg Tab PO SCH (21:00)
[2016-08-14] MEDS: Insulin Lispro Flexpen 300 UNIT/3 ML INSULN.PEN SUBCUT SCH ×2 (07:11→11:18)
--- NOTE | 2016-08-14 07:26 | PDOC(PROG) ---
Date and Time of Service: 08/14/2016 7:24 AM Interval History: Subjective Patient is denying symptoms, no chest pain, no shortness of breath. Objective : Data - Labs CBC and BMP: 08/14/16 07:30 08/14/16 07:30 Objective : Exam - General General Appearance: No Acute Distress, Cooperative, Obese - Head Head Exam: Normal Inspection, Atraumatic - Eye Eye Exam: Normal Appearance - Neck Neck Exam: Normal Inspection - Respiratory Additional Respiratory Exam Details: Occasional crackles at the bases - Cardiovascular Cardiovascular Exam: RRR - GI/Abdominal GI/Abdominal Exam: Normal Bowel Sounds, Non Tender, Non Distended, Soft - Rectal Rectal Exam: Deferred - External Exam: Deferred - Extremities Additional Extremities Exam Details: Trace edema in the left leg - Back Back Exam: Normal Inspection - Neurological Neurological Exam: Alert, CN II-XII Intact, Speech Intact / Clear Additional Neurological Exam Details: Some weakness noted in the left leg which is old - Psychiatric Psychiatric Exam: Normal Affect Assessment and Plan - Patient Problems (1) Community acquired pneumonia Current Visit: Yes Status: Acute Comment: I think he is doing better, I'll speak with the physical therapist if they clear him then will discharge him later on today after the IV antibiotics. 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 transplanted heart: [place] heart Associated angina: without angina Qualified Description: Coronary artery disease involving [place] coronary artery of [place] heart without angina pectoris Qualifier Code(s): (I25.10) Atherosclerotic heart disease of [place] coronary artery without angina pectoris
[2016-08-14 07:35] LABS: BASOPHILS # (AUTO) 0.04 10*3/UL; BASOPHILS % (AUTO) 0.5 % (0-1); EOSINOPHILS # (AUTO) 0.41 10*3/UL; EOSINOPHILS % (AUTO) 4.6 % (0-8); HEMATOCRIT 43.7 % (42.0-52.0); HEMOGLOBIN 15.8 g/dL (14.0-18.0); MEAN CORPUSCULAR HEMOGLOBIN 30.8 PG (27-31); MEAN CORPUSCULAR HGB CONC 36.2 g/dL (33-37); MEAN CORPUSCULAR VOLUME 85.2 FL (80-90); MEAN PLATELET VOLUME 9.8 FL (7.4-12.2); MONOCYTES # (AUTO) 0.72 10*3/UL (0.3-0.8); MONOCYTES % (AUTO) 8.1 % (5-15); NEUTROPHILS # (AUTO) 6.19 10*3/UL; NEUTROPHILS % (AUTO) 69.8 % (50-80); PLATELET MORPHOLOGY COMMENT NORMAL MORPHOLOGY (NORM); RBC MORPHOLOGY COMMENT NORMAL MORPHOLOGY (NORM); RED BLOOD COUNT 5.13 10^6/uL (4.70-6.10); WBC MORPHOLOGY COMMENT NORMAL MORPHOLOGY (NORM)
[2016-08-14 07:48] LABS: BLOOD UREA NITROGEN 12 mg/dL (7-22); CALCIUM 8.9 mg/dL (8.7-10.7)
[2016-08-14] MEDS: DOCUSATE 100 MG CAPSULE PO SCH (09:36)
[2016-08-14] MEDS: Potassium Chloride Tab 10 MEQ TAB PO SCH (09:37)
[2016-08-14] MEDS: Beta Carot W/Vit E,C,Min Tab 1 TAB TAB PO SCH (09:37)
[2016-08-14] MEDS: Calcium/Vit D 600mg/400u Tab 1 TAB TABLET PO SCH (09:37)
[2016-08-14] MEDS: Metoprolol TARTRATE Tab 25 MG TAB PO SCH (09:37)
[2016-08-14] MEDS: FINASTERIDE 5 MG TABLET PO SCH (09:38)
[2016-08-14] MEDS: ASPIRIN 81 MG (BABY) CHEWABLE TABLET PO SCH (09:38)
[2016-08-14] MEDS: Multivitamin Tab 1 TAB PO SCH (09:38)
--- NOTE | 2016-08-14 09:56 | OT.PROG ---
Progress Note Progress Note: S: pt was brought to therapy by PT services. pt was willing to work with OT although was tired and ready to go home. O: pt transferred to the arm bike where he completed 4 minutes forward and 2 min back, pt then complained of shoulder pain in the left shoulder. pt then ambulated over to a chair (15 feet) and completed green theraband exercises on the right UE 15 reps in all directions, although struggled with the left UE due to pain. pts left arm was taped for support to pull the head of the humerous into the socket. pt then ambulated upstairs with a 4WW with CGA and moderate cues to lift the left foot through his gait. throughout the session pt required cues for safety when transferring into a chair. A: pt is to be going home today. pt will requires safety cues throughout ambulation at home. P: cont per POC uintil pt is discharged home
[2016-08-14] MEDS: cefTRIAXone Inj 2 GM in Sodium Chloride 0.9% 100 ML IV SCH (11:00)
[2016-08-14 11:16] VITALS: RESP 16; TEMP 97.4
--- NOTE | 2016-08-14 12:48 | DCSUMMARY ---
Hospitalization Summary Admit Date: 08/11/16 Discharge Date: 08/14/16 Hospital Course: Discharge diagnoses 1. Large right lower lobe pneumonia 2. Diabetes type II 3. History of cerebrovascular accident with residual left-sided weakness 4. Confusion, question of dementia. 4. Hypertension 5. Carotid disease status post stent 6. History of sleep apnea not tolerant of CPAP 7. History of aortic valve replacement 8. History of previous pneumonias in the past 9. History of [facility] Hospital course This is a 71 years old male with medical history significant for history of diabetes, history of previous stroke, hypertension and dementia who came into the hospital complaining of being very chilled and cold and weak. Evaluation in the ER revealed a large right lower lobe pneumonia on chest x-ray and CT. He was given antibiotics and was admitted the hospital by Dr. Almaguer please see his note. Patient was evaluated in the past for aspiration and he did not have aspiration issues. Patient was treated with antibiotics with gradual improvement in his symptoms. I saw him later on he during hospital stay we continued with treatment , continued physical therapy. There was a gradual improvement in his symptoms on the day of discharge he was doing better we thought that he could be discharged home. We checked his oxygen sats and he did not require oxygen on discharge. He did have a history though of sleep apnea I suggested maybe he need to have a nocturnal oxygen saturation test later on as an outpatient. He will need follow-up with his primary to ensure resolution of the pneumonia. Laboratory Results 08/11/16 08/11/16 08/11/16 Range/Units 07:30 07:59 08:10 WBC 12.51 H (4.8-10.8) 10^3/uL RBC 5.31 (4.70-6.10) 10^6/uL Hgb 16.2 (14.0-18.0) g/dL Hct 45.7 (42.0-52.0) % MCV 86.1 (80-90) FL MCH 30.5 (27-31) PG MCHC 35.4 (33-37) g/dL RDW Std Deviation 44.0 (39-50) fL RDW Coeff of Mk 14.0 (11.5-14.5) % Plt Count 218 (140-350) 10*3/uL MPV 10.8 (7.4-12.2) FL Immature Gran % (Auto) 0.2 (0-5) % Neut % (Auto) 83.1 H (50-80) % Lymph % (Auto) 8.8 L (10-50) % [place] % (Auto) 7.4 (5-15) % Eos % (Auto) 0.3 (0-8) % Baso % (Auto) 0.2 (0-1) % Immature Gran # (Auto) 0.03 10*3/UL Neut # (Auto) 10.39 10*3/UL Lymph # (Auto) 1.10 10*3/uL [place] # (Auto) 0.92 H (0.3-0.8) 10*3/UL Eos # (Auto) 0.04 10*3/UL Baso # (Auto) 0.03 10*3/UL WBC Morphology Comment Normal morphology (NORM) Plt Morphology Comment Normal morphology (NORM) RBC Morph Comment Normal morphology (NORM) D-Dimer 4.05 H (0.00-0.59) mg/L Sodium 140 (135-145) meq/L Potassium 3.7 L (3.8-5.2) meq/L Chloride 105 (98-112) meq/L Carbon Dioxide 21 L (23-33) meq/L Anion Gap 14 (5-20) BUN 19 (7-22) mg/dL Creatinine 0.9 (0.70-1.50) mg/dL 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 BUN/Creatinine Ratio 21.11 H (6-20) Glucose 221 H (78-110) mg/dL Calculated Osmolality 298.0 H (267-292) mOsm/kg Lactic Acid 1.4 (0.70-2.10) MMOL/L Calcium 9.2 (8.7-10.7) mg/dL Magnesium 0.9 L (1.6-2.4) mg/dL Total Bilirubin 1.1 (0.3-1.2) mg/dL AST 26 (21-57) IU/L ALT 23 (21-72) IU/L Alkaline Phosphatase 91 (38-126) IU/L C-Reactive Protein 3.2 H (0.0-0.9) mg/dL Total Protein 7.1 (6.1-8.0) g/dL Albumin 4.0 (3.5-4.8) g/dL Globulin 3.1 (2.50-4.10) g/dL Albumin/Globulin Ratio 1.20 L (1.3-2.0) mg/g Ur Collection Type Clean catch urine Urine Color Yellow Urine Clarity Slightly cloudy (CLEAR) Urine pH 5.5 (5.0-8.5) Ur Specific Advance 1.005 (1.005-1.030) Urine Protein Trace (NEG) mg/dl Urine Glucose (UA) 500 (NEG) mg/dL Urine Ketones 40 (NEG) Urine Occult Blood Negative (NEG) Urine Nitrate Negative (NEG) Urine Bilirubin Negative (NEG) Urine Urobilinogen 0.2 (0.2) EU/dL Ur Leukocyte Esterase Negative (NEG) Ur Culture Indicated? Culture not set 08/12/16 08/13/16 08/14/16 Range/Units 04:17 04:54 07:30 WBC 15.80 H 12.91 H 8.87 (4.8-10.8) 10^3/uL RBC 4.49 L 4.61 L 5.13 (4.70-6.10) 10^6/uL Hgb 13.7 L 13.8 L 15.8 (14.0-18.0) g/dL Hct 39.3 L 40.1 L 43.7 (42.0-52.0) % MCV 87.5 87.0 85.2 (80-90) FL MCH 30.5 29.9 30.8 (27-31) PG MCHC 34.9 34.4 36.2 (33-37) g/dL RDW Std Deviation 44.7 45.0 43.4 (39-50) fL RDW Coeff of Mk 14.3 14.2 14.2 (11.5-14.5) % Plt Count 200 201 224 (140-350) 10*3/uL MPV 11.0 10.1 9.8 (7.4-12.2) FL Immature Gran % (Auto) 0.1 0.3 0.1 (0-5) % Neut % (Auto) 80.5 H 75.0 69.8 (50-80) % Lymph % (Auto) 11.9 13.8 16.9 (10-50) % [place] % (Auto) 6.4 7.9 8.1 (5-15) % Eos % (Auto) 0.9 2.6 4.6 (0-8) % Baso % (Auto) 0.2 0.4 0.5 (0-1) % Immature Gran # (Auto) 0.02 0.04 0.01 10*3/UL Neut # (Auto) 12.72 9.69 6.19 10*3/UL Lymph # (Auto) 1.88 1.78 1.50 10*3/uL [place] # (Auto) 1.01 H 1.02 H 0.72 (0.3-0.8) 10*3/UL Eos # (Auto) 0.14 0.33 0.41 10*3/UL Baso # (Auto) 0.03 0.05 0.04 10*3/UL WBC Morphology Comment Normal morphology Normal morphology Normal morphology (NORM) Plt Morphology Comment Normal morphology Normal morphology Normal morphology (NORM) RBC Morph Comment Normal morphology Normal morphology Normal morphology ( NORM) D-Dimer (0.00-0.59) mg/L Sodium 138 138 139 (135-145) meq/L Potassium 3.7 L 3.6 L 3.9 (3.8-5.2) meq/L Chloride 105 106 107 (98-112) meq/L Carbon Dioxide 23 21 L 20 L (23-33) meq/L Anion Gap 10 11 12 (5-20) BUN 18 11 12 (7-22) mg/dL Creatinine 0.7 0.6 L 0.6 L (0.70-1.50) mg/dL 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 BUN/Creatinine Ratio 25.71 H 18.33 20.00 (6-20) Glucose 161 H 171 H 186 H (78-110) mg/dL Calculated Osmolality 290.0 288.0 292.0 (267-292) mOsm/kg Lactic Acid (0.70-2.10) MMOL/L Calcium 8.6 L 8.9 8.9 (8.7-10.7) mg/dL Magnesium (1.6-2.4) mg/dL Total Bilirubin (0.3-1.2) mg/dL AST (21-57) IU/L ALT (21-72) IU/L Alkaline Phosphatase (38-126) IU/L C-Reactive Protein (0.0-0.9) mg/dL Total Protein (6.1-8.0) g/dL Albumin (3.5-4.8) g/dL Globulin (2.50-4.10) g/dL Albumin/Globulin Ratio (1.3-2.0) mg/g Ur Collection Type Urine Color Urine Clarity (CLEAR) Urine pH (5.0-8.5) Ur Specific Advance (1.005-1.030) Urine Protein (NEG) mg/dl Urine Glucose (UA) (NEG) mg/dL Urine Ketones (NEG) Urine Occult Blood (NEG) Urine Nitrate (NEG) Urine Bilirubin (NEG) Urine Urobilinogen (0.2) EU/dL Ur Leukocyte Esterase (NEG) Ur Culture Indicated? Discharge instruction Diet regular Activity as started Medications Home Medications Medication Instructions Recorded Confirmed Type Aspirin [Baby Aspirin] 2 tab ORAL QD tab 09/05/10 08/11/16 History Diphenhydramine HCl [Benadryl] 1 cap PO HS 01/31/12 08/11/16 History Docusate Sodium [Colace] 1 cap ORAL BID capsule 01/31/12 08/11/16 History Multivitamin [Daily Vitamin] 1 tab ORAL QD tab 01/31/12 08/11/16 History Calcium Carb & Citrate/Vit D3 1 each PO DAILY 09/10/12 08/11/16 History [Calcium + D3 ER Tablet] Walker [Ultra-Light Rollator] 1 each ONCE #1 each 10/26/14 08/11/16 Clinic Vit C/E/Zn/Coppr/Lutein/Zeaxan 1 each PO BID cap 06/26/15 08/11/16 History [Preservision Areds 2 Softgel] Clotrimazole 1 applic TOPICAL BID #60 tube 09/25/15 08/11/16 Clinic Ciclopirox 6.6 ml TOPICAL DAILY #1 bottle 01/25/16 08/11/16 Clinic Terbinafine HCl [Terbinafine] 15 gm TOPICAL BID #1 tube 01/25/16 08/11/16 Clinic Metoprolol Tartrate 1 tab ORAL BID #180 tab 03/04/16 08/11/16 Clinic Amlodipine Besylate [Norvasc] 1 tab PO QD #90 tab 05/14/16 08/11/16 Clinic Omeprazole 1 cap PO QHS #90 cap 05/14/16 08/11/16 Clinic Pravastatin Sodium [Pravachol] 1 tab PO QHS #90 tab 05/14/16 08/11/16 Clinic Solifenacin Succinate [Vesicare] 1 tab ORAL QD #90 tab 05/14/16 08/11/16 Clinic Dapagliflozin Propanediol [Farxiga] 5 mg PO QD #90 tab 06/07/16 08/11/16 Clinic Donepezil HCl [Aricept] 23 mg PO DAILY #90 tab 06/07/16 08/11/16 Clinic Finasteride 5 mg PO DAILY #90 tab 06/07/16 08/11/16 Clinic Linagliptin/Metformin HCl 1 tab PO BID #180 tab 06/07/16 08/11/16 Clinic [Jentadueto 2.5 mg-1000 mg Tab] Losartan Potassium 1 tab PO DAILY #90 tab 06/07/16 08/11/16 Clinic Tamsulosin HCl 1 tab PO QHS #90 tab 06/07/16 08/11/16 Clinic Amoxicillin 1,000 mg PO TID #18 tablet 08/14/16 Rx Azithromycin [Zithromax] 250 mg PO DAILY #3 tab 08/14/16 Rx Follow-up with PCP in 1-2 weeks Condition at discharge was stable for discharge Exam - Vitals Vital Signs: Vital Signs Temperature 97.4 F Temperature Source Temporal Artery Scan Pulse Rate [Apical] 88 Pulse Rate [Pulse Oximeter] 81 Respiratory Rate 16 Blood Pressure [Right Arm] 122/78 Blood Pressure [Left Arm] 129/52 Pulse Ox 92 Oxygen Flow Rate 2 Oxygen Delivery Method Nasal Cannula Height 5 ft 11 in Weight 241 lb Patient Problems - Patient Problem List (1) Community acquired pneumonia Status: Acute (2) Diabetes mellitus type II, controlled Status: Acute Qualifiers: Diabetes mellitus complication status: without complication Diabetes mellitus terminal manager insulin use: without chcf use Qualified Description : Controlled type 2 diabetes mellitus without complication, without long-term current use of insulin Qualifier Code(s): (E11.9) Type 2 diabetes mellitus without complications (3) Coronary artery disease Status: Chronic Qualifiers: Coronary Disease-Associated Artery/Lesion type: [place] artery [place] vs. transplanted heart: [place] heart Associated angina: without angina Qualified Description: Coronary artery disease involving [place] coronary artery of [place] heart without angina pectoris Qualifier Code(s): (I25.10) Atherosclerotic heart disease of [place] coronary artery without angina pectoris
--- NOTE | 2016-08-15 08:08 | PT.PROG ---
Progress Note Progress Note: S: Pt. states he is doing well today. Thinks he will be going home. O: Treatment consisted of functional activities: ambulating to and from the therapy clinic, nu step x 10 min, sit to stands x 5, balance grid. Pt. was then transferred to OT for activities. A: Pt. does ambulate with a forward posture and shuffle gait. He requires verbal cueing for safety. But otherwise doing well. He should go home today and do well. P: Continue per POC to increase strength and activities unless otherwise d/c from facility. Ibis King, HAUL DRIVER
--- NOTE | 2016-08-15 15:19 | OT.PROG ---
Progress Note Progress Note: S: Pt stated that he was feeling good and that he was ready to go home. O: Pt ambulated from room to therapy gym approx 150ft with CGA. Pt required mod assist to stand from an average height surface. Pt complete hand strengthening exercise to include orange putty and clothespins. wrist flex/ext, pronation/ supination, ulnar/radial deviation exercises using a 3lb weight 10x each bilaterally. Pt completed the arm bike for 5min each direction. A: Pt has an unsteady gate that creates decreased stability when walking and requires assist. He would continue to benefit from skilled OT services for strength and endurance exercise to increase safety when ambulating. P: Continue POC
== END 2016-08-14 12:46 | disposition home or self-care (01) | DRG 193 ==
LOC: ER 07:36 → MED/SURG 09:26
PROVIDERS: ADMIT Family Medicine; ATTEND Internal Medicine
DX: J18.9 Pneumonia, unspecified organism (principal); I63.8 Other cerebral infarction; E11.9 Type 2 diabetes mellitus without complications; R53.1 Weakness; R41.0 Disorientation, unspecified; I10 Essential (primary) hypertension; Z95.2 Presence of prosthetic heart valve; F03.90 Unspecified dementia, unspecified severity, without behavioral disturbance, psychotic disturbance, mood disturbance, and anxiety; K22.2 Esophageal obstruction; I25.10 Atherosclerotic heart disease of native coronary artery without angina pectoris
CPT/HCPCS: 36415; 71020; 71275; 80048; 80053; 81003; 82948; 83605; 83735; 85025; 85379; 86140; 87040; 93970; 94761; 96365; 97110; 97161; 97166; 97530; 99284; J0696; J1335; J3490; J7050

== ENCOUNTER → 2016-08-21 | Outpatient (CLI) | payer OTHER, MEDICARE | LOC: MMPC 09:00 | PROVIDERS: ATTEND Family Medicine | DX: E11.9 Type 2 diabetes mellitus without complications (principal); E78.5 Hyperlipidemia, unspecified; I10 Essential (primary) hypertension; K44.9 Diaphragmatic hernia without obstruction or gangrene; R35.1 Nocturia; Z86.73 Personal history of transient ischemic attack (TIA), and cerebral infarction without residual deficits | CPT/HCPCS: 99213; G0463 ==

== ENCOUNTER → 2016-09-11 | Outpatient (CLI) | payer OTHER, MEDICARE | LOC: MMPC 11:11 | DX: E11.9 Type 2 diabetes mellitus without complications (principal); I10 Essential (primary) hypertension; E78.5 Hyperlipidemia, unspecified; E66.9 Obesity, unspecified; N40.1 Benign prostatic hyperplasia with lower urinary tract symptoms; Z95.2 Presence of prosthetic heart valve; Z86.73 Personal history of transient ischemic attack (TIA), and cerebral infarction without residual deficits | CPT/HCPCS: 99214; G0463 ==

== ENCOUNTER → 2016-10-30 | Outpatient (CLI) | payer OTHER, MEDICARE | LOC: MMPC 10:00 | PROVIDERS: ATTEND Podiatrist Foot & Ankle Surgery | DX: B35.1 Tinea unguium (principal); R60.0 Localized edema; L85.0 Acquired ichthyosis; E11.9 Type 2 diabetes mellitus without complications; E66.9 Obesity, unspecified | CPT/HCPCS: 99212; G0463 ==

== ENCOUNTER 2017-04-01 10:05 | Inpatient (IN) ==
[2017-04-01] MEDS ORDERED: Sodium Chloride 0.9% 1,000 ML PRIMARY IV ONE (10:26)
[2017-04-01] MEDS ORDERED: NORMAL SALINE 10 ML SYRINGE FLUSH IVP PRN (10:26)
[2017-04-01 10:34] LABS: BASOPHILS # (AUTO) 0.04 10*3/UL; BASOPHILS % (AUTO) 0.2 % (0-1); EOSINOPHILS # (AUTO) 0.01 10*3/UL; EOSINOPHILS % (AUTO) 0 % (0-8); Hematocrit [HCT] 44.1 % (42.0-52.0); Hemoglobin [HGB] 15.5 g/dL (14.0-18.0); MEAN CORPUSCULAR HEMOGLOBIN 30.6 PG (27-31); MEAN CORPUSCULAR HGB CONC 35.1 g/dL (33-37); MEAN PLATELET VOLUME 10.3 FL (7.4-12.2); MONOCYTES # (AUTO) 1.31 10*3/UL (0.3-0.8); NEUTROPHILS # (AUTO) 19.16 10*3/UL; NEUTROPHILS % (AUTO) 88.4 % (50-80); RED BLOOD COUNT 5.07 10^6/uL (4.70-6.10)
--- NOTE | 2017-04-01 10:39 | EKG ---
[address] [place] [address] Measurements Intervals [place] Rate: 66 P: 60 MO: 182 QRS: -58 QRSD: 113 T: 57 QT: 453 QTc: 466 Interpretive Statements SINUS RHYTHM LEFT ANTERIOR FASCICULAR BLOCK NONSPECIFIC T-WAVE ABNORMALITY PROLONGED QT INTERVAL Compared to ECG 10/02/2015 10:38:29 T-wave abnormality now present Prolonged QT interval now present Right bundle-branch block no longer present Electronically Signed On 04-01-17 17:23:18 [facility] by Yuval Bonner [email or web address]
[2017-04-01 10:48] LABS: PLATELET MORPHOLOGY COMMENT NORMAL MORPHOLOGY (NORM); RBC MORPHOLOGY COMMENT NORMAL MORPHOLOGY (NORM); WBC MORPHOLOGY COMMENT NORMAL MORPHOLOGY (NORM)
[2017-04-01 10:49] LABS: BLOOD UREA NITROGEN 14 mg/dL (7-22); SERUM ALBUMIN 3.8 g/dL (3.5-4.8)
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
[2017-04-01 10:54] LABS: VENOUS PH 7.47 (7.32-7.42)
[2017-04-01] MEDS ORDERED: cefTRIAXone Inj 2 GM in Sodium Chloride 0.9% 100 ML IV ONE (11:04)
--- NOTE | 2017-04-01 11:09 | DI ---
AP CHEST X-RAY, 04/01/2017 10:26 AM : Clinical History: Cough. Fever. Previous Exam: 08/11/2016 There is no acute soft tissue or bony abnormality. The patient is status post CABG. Heart size is nor mal. There is an infiltrate in the right lung probably involving the right middle lobe, the right low er lobe, and the right upper lobe. This would be consistent with pneumonia. The appearance is almost identical to the AP projection on the previous study. Mediastinal structures are normal. There are no pulmonary nodules. Reading: Right upper lobe, right lower lobe, and right middle lobe pneumonia.
[2017-04-01] MEDS ORDERED: Magnesium Sulfate 2gm (Premix) 2 GM/50 ML BAG IV ONE (11:12)
--- NOTE | 2017-04-01 11:26 | PDOC ---
HPI - History of Present Illness History of Present Illness: This very nice 71-year-old gentleman who presents with a couple weeks of the generalized weakness and cough also has some fever and chills at home this morning he was so weak difficulty in getting out of bed he does ahead past medical history of pneumonias in the past. He denies chest pain does have a history of diabetes and high blood pressure patient is doing much better now breathing-basurto he has received some fluids his magnesium was replaced as well. Overall he looks weak Past Medical History Medical History: 1. Diabetes mellitus type II. 2. History of cerebrovascular accident with left-sided weakness. 3. Confusion, question dementia. No change on Aricept. 4. Hypertension. 5. Coronary artery disease status post stent in the past. 6. obstructive sleep apnea with non-tolerance of CPAP therapy. 7. Status post aortic valve replacement (bovine) Surgical History: 1. Coronary stent placed. 2. Aortic valve replacement. 3. Back surgery. 4. Knee replacement on the right side Pertinent Family History: Significant for congestive heart failure in his mother and history of stroke in his sister Past Social History: Does not smoke or drink. for 35 years. Has children described as healthy. Tobacco Use: Never Smoker In the Past 12 Months, Have Used or Abuse Any of the Following Substance: None Medication / Allergies Home Medications: Home Medications Medication Instructions Recorded Confirmed Type Aspirin [Baby Aspirin] 2 tab ORAL QD tab 09/05/10 04/01/17 History Docusate Sodium [Colace] 1 cap ORAL BID cap 01/31/12 04/01/17 History Multivitamin [Daily Vitamin] 1 tab ORAL QD tab 01/31/12 04/01/17 History Calcium Carb, Citrate/Vit D3 1 ea PO DAILY 09/10/12 04/01/17 History [Calcium + D3 ER Tablet] Walker [Ultra-Light Rollator] 1 ea MC ONCE #1 ea 10/26/14 04/01/17 History Vit C/E/Zn/Coppr/Lutein/Zeaxan 1 ea PO BID cap 06/26/15 04/01/17 History [Preservision Areds 2 Softgel] Clotrimazole 1 applic TOPICAL BID #60 tube 09/25/15 04/01/17 History Ciclopirox 6.6 ml TOPICAL DAILY #1 bottle 01/25/16 04/01/17 Rx Terbinafine HCl [Terbinafine] 15 gm TOPICAL BID #1 tube 01/25/16 04/01/17 Rx Metoprolol Tartrate 1 tab ORAL BID #180 tab 03/04/16 04/01/17 Rx Solifenacin Succinate [Vesicare] 1 tab ORAL QD #90 tab 05/14/16 04/01/17 Rx amlodipine 10 mg tablet 10 mg PO QD #90 tab 01/13/17 04/01/17 Rx dapagliflozin 5 mg tablet 5 mg PO QD #90 tab 01/13/17 04/01/17 Rx donepezil 23 mg tablet 23 mg PO QD #90 tab 01/13/17 04/01/17 Rx linagliptin 2.5 mg-metformin 1,000 1 tab PO BID #180 tab 01/13/17 04/01/17 Rx mg tablet losartan 100 mg tablet 100 mg PO QD #90 tab 01/13/17 04/01/17 Rx omeprazole 20 mg capsule,delayed 20 mg PO QHS #90 cap 01/13/17 04/01/17 Rx release pravastatin 80 mg tablet 80 mg PO QHS #90 tab 01/13/17 04/01/17 Rx tamsulosin 0.4 mg capsule 0.4 mg PO QHS #90 tab 01/13/17 04/01/17 Rx Allergies/Adverse Reactions: Allergies 3 Allergy/AdvReac Type Severity Reaction Status Date / Time Sulfa (Sulfonamide Allergy PT UNSURE Verified 04/01/17 12:53 Antibiotics) Review of Systems - Review of Systems All Systems: Reviewed & No Additional Complaints Except as Stated - Respiratory Respiratory: REPORTS: Cough - Cardiovascular Cardiovascular: DENIES: Negative System Review, Chest Pain, Edema, Syncope, Palpitations, Orthopnea, Paroxysmal Nocturnal Dyspnea, Other, See HPI - Gastrointestinal Gastrointestinal / Abdominal: DENIES: Negative System Review, Nausea, Vomiting, Diarrhea, Constipation, Abdominal Pain, Bloody Stool, Poor Appetite, Heartburn, Regurgitation, Bloating, Lactose Intolerance, Melena, Bright Red Blood per Rectum, Other, See HPI - Genitourinary Genitourinary: DENIES: Negative System Review, Pain, Burning, Hematuria, Incontinence, Urgency, Hesitant Stream, Decreased Stream, Nocutria, Discharge, Sexual Dysfunction, Other, See HPI - Neurological Neurologic: DENIES: Negative System Review, Headache, Numbness/Paresthesia, Tremors, Weakness, Seizures, Head Trauma, LOC, Dizziness, Confusion, Memory Loss , Difficulty Walking, Incoordination, Other, See HPI Exam - Vitals Vital Signs: Vital Signs Temperature 97.5 F Temperature Source Oral Pulse Rate [Pulse Oximeter] 70 Pulse Rate 66 Respiratory Rate 21 Blood Pressure [Right Arm] 115/67 Pulse Ox 90 Oxygen Delivery Method Room Air Height 5 ft 5 in Weight 245 lb - General General Appearance: No Acute Distress, Cooperative - Head Head Exam: Normal Inspection, Normocephalic, Atraumatic - Eye Eye Exam: POSITIVE: Normal Appearance, PERRL, EOMI, No Scleral Icterus - ENT ENT Exam: POSITIVE: Normal Exam, Normal External Ear Exam, Normal Oropharynx, TM 's Normal Bilaterally, Mucous Membranes Moist - Neck Neck Exam: Normal Inspection, Full ROM, No Tenderness, No Lymphadenopathy, No Thyromegaly, JVP is not Raised - Respiratory Respiratory Exam: POSITIVE: Clear to Auscultation - Bilaterally, Breathing Non Labored, Normal To Percussion, Normal to Percussion and Palpation - Cardiovascular Cardiovascular Exam: POSITIVE: RRR, No Murmur, No Clicks, No Gallops, No Rubs, PMI Non-Displaced - GI/Abdominal GI/Abdominal Exam: POSITIVE: Normal Bowel Sounds, Non Tender, Non Distended, Soft, No Masses, No Hepatomegaly, No Splenomegaly, No Organomegaly - Extremities Extremities Exam: POSITIVE: Normal Inspection, Full ROM, Normal Capillary Refill , No Clubbing Present, No Edema Present, No Cyanosis Present, Negative Cole's sign, Dosalis Pedis Pulses - Stong & Regular Results - Labs CBC and BMP: 04/01/17 10:31 04/01/17 10:31 Assessment and Plan - Patient Problems (1) Pneumonia Current Visit: Yes Status: Acute Comment: Zithromax 500 IV daily plus ceftriaxone 2 g daily monitor blood work Code(s): J18.9 - Pneumonia, unspecified organism (2) Hypokalemia Current Visit: Yes Status: Acute Comment: IV fluids with 20 of K1 25 an hour Code(s): E87.6 - Hypokalemia (3) Hypomagnesemia Current Visit: Yes Status: Acute Comment: Patient is getting 2 g IV in the ER he will need 2 more grams when he gets to the floor recheck labs in a.m. Code(s): E83.42 - Hypomagnesemia (4) Diabetes mellitus, type 2 Current Visit: No Status: Acute Comment: Continue usual medication Qualifiers: (5) Dyslipidemia Current Visit: No Status: Acute Onset Date: 03/11/12 Comment: Continue statin Code(s): E78.5 - Hyperlipidemia, unspecified (6) Coronary artery disease Current Visit: No Status: Chronic Comment: Continue beta sissy aspirin calcium channel sissy and ARB Code(s): I25.10 - Atherosclerotic heart disease of [place] coronary artery without angina pectoris Qualifiers: (7) Obstructive sleep apnea syndrome Current Visit: No Status: Chronic Comment: Duo nebs when necessary
[2017-04-01 12:06] LABS: BILIRUBIN,URINE NEGATIVE (NEG); CLARITY,URINE CLEAR (CLEAR); GLUCOSE, URINE (UA) 500 mg/dL (NEG); OCCULT BLOOD,URINE NEGATIVE (NEG); PH,URINE 5.5 (5.0-8.5); PROTEIN,URINE 30 mg/dl (NEG)
[2017-04-01 12:24] LABS: COLOR,URINE YELLOW (Y)
[2017-04-01 12:25] LABS: URINE CRYSTALS FEW; URINE SAMPLE TYPE VOIDED SPECIMEN
--- NOTE | 2017-04-01 12:37 | DI ---
CT ANGIOGRAM OF THE CHEST, 04/01/2017 11:03 AM : Clinical History: Hypoxia. Elevated D-dimer test. Previous Exam: 08/11/2016. Scans are performed from the base of the neck to the lower lung bases following IV administration of 65 mL of Isovue 300. Proprietary automated bolus tracking software was used to verify the timing of t he injection. The base of the neck and thoracic inlet are normal. There are no abnormal axillary, supraclavicular, mediastinal, or left hilar nodes. There is right hilar adenopathy. The patient is status post CABG wi th aortic valve replacement. The pulmonary arteries are not optimally opacified. There are no clots v isualized in the second order and the larger third order branches. Small clots could be missed in the distal branches. There are alveolar type infiltrates involving all of the lobes of the right lung, b ut this is not the classic appearance of a lobar pneumonia. This may represent aspiration pneumonia a lthough the patient would have to spend a significant amount of time lying on his right side since th ere is no involvement of the left side. This pattern of pneumonia is identical to the previous study. Another possibility although much less likely would be that this patient has underlying alveolar omari l carcinoma with a secondary infection. There is no pleural effusion. The visualized portions of the adrenal glands, spleen, liver, and pancreas are normal. READIN. The opacity in of the pulmonary arteries is suboptimal but there is no evidence of pulmonary embo lism in the second and the mid to large or third order branches. 2. There are infiltrates involving all lobes of the right lung only with right hilar adenopathy. The pattern of involvement is identical to the previous study. This would represent pneumonia but it is not of the classic lobar pattern. It may represent aspiration if this patient spends a substantial am ount of time lying on his right side. Another less likely possibility would be that this patient has underlying alveolar cell carcinoma and has a concurrent bacterial infection.
[2017-04-01] MEDS ORDERED: WALKER MC SCH (12:42)
[2017-04-01] MEDS ORDERED: ONDANSETRON 4 MG/2 ML VIAL IVP PRN (12:42)
[2017-04-01] MEDS ORDERED: LIDOCAINE W/ SODIUM BICARB 0.5 ML SYR SUBD PRN (12:42)
[2017-04-01] MEDS: HEPARIN 5000 UNIT/1 ML SUBCUT SCH ×2 (14:14→20:01)
[2017-04-01] MEDS: IPRATROPIUM/ALBUTEROL SULFATE 3 ML NEB NEB PRN (15:16)
[2017-04-01] MEDS: metroNIDAZOLE 500mg (Premix) 500 MG/100 ML BAG IV SCH ×2 (17:43→23:37)
[2017-04-01] MEDS: Metoprolol TARTRATE Tab 50 MG TAB PO SCH (20:01)
[2017-04-01] MEDS: OMEPRAZOLE 20 MG CAPSULE PO SCH (20:01)
[2017-04-01] MEDS: Pravastatin 80mg Tab PO SCH (20:02)
[2017-04-01] MEDS: SOLIFENACIN SUCCINATE 5 MG ORAL SCH (20:02)
[2017-04-01] MEDS: METFORMIN HCL PO SCH (20:02)
[2017-04-01] MEDS: LINAGLIPTIN PO SCH (20:02)
[2017-04-01] MEDS ORDERED: TERBINAFINE HCL TOPICAL SCH (21:00)
[2017-04-01] MEDS ORDERED: CLOTRIMAZOLE 28.35 GM CREAM TOPICAL SCH (21:00)
[2017-04-02 04:52] LABS: BASOPHILS # (AUTO) 0.04 10*3/UL; BASOPHILS % (AUTO) 0.3 % (0-1); EOSINOPHILS # (AUTO) 0.19 10*3/UL; EOSINOPHILS % (AUTO) 1.2 % (0-8); Hematocrit [HCT] 36.6 % (42.0-52.0); Hemoglobin [HGB] 12.8 g/dL (14.0-18.0); LYMPHOCYTES # (AUTO) 1.88 10*3/uL; MEAN CORPUSCULAR HEMOGLOBIN 30.8 PG (27-31); MEAN CORPUSCULAR VOLUME 88.2 FL (80-90); MEAN PLATELET VOLUME 10.6 FL (7.4-12.2); MONOCYTES # (AUTO) 0.74 10*3/UL (0.3-0.8); MONOCYTES % (AUTO) 4.7 % (5-15); NEUTROPHILS # (AUTO) 12.93 10*3/UL; NEUTROPHILS % (AUTO) 81.7 % (50-80); RED BLOOD COUNT 4.15 10^6/uL (4.70-6.10)
[2017-04-02 05:00] LABS: BLOOD UREA NITROGEN 10 mg/dL (7-22); BUN/CREATININE RATIO 16.66 (6-20)
[2017-04-02 05:09] LABS: PLATELET MORPHOLOGY COMMENT NORMAL MORPHOLOGY (NORM); RBC MORPHOLOGY COMMENT NORMAL MORPHOLOGY (NORM); WBC MORPHOLOGY COMMENT NORMAL MORPHOLOGY (NORM)
[2017-04-02] MEDS: HEPARIN 5000 UNIT/1 ML SUBCUT SCH ×3 (05:30→20:01)
[2017-04-02] MEDS: Multivitamin Tab 1 TAB PO SCH (08:53)
[2017-04-02] MEDS: ASCORBIC ACID 500 MG TABLET PO SCH (08:53)
[2017-04-02] MEDS: Beta Carot W/Vit E,C,Min Tab 1 TAB TAB PO SCH (08:53)
[2017-04-02] MEDS: metroNIDAZOLE 500mg (Premix) 500 MG/100 ML BAG IV SCH ×2 (08:53→16:56)
[2017-04-02] MEDS: METFORMIN HCL PO SCH ×2 (08:54→20:02)
[2017-04-02] MEDS: Calcium/Vit D 600mg/400u Tab 1 TAB TABLET PO SCH (08:54)
[2017-04-02] MEDS: DONEPEZIL HCL 23 MG PO SCH (08:54)
[2017-04-02] MEDS: ASPIRIN 81 MG (BABY) CHEWABLE TABLET PO SCH (08:54)
[2017-04-02] MEDS: LOSARTAN 50 MG TABLET PO SCH (08:54)
[2017-04-02] MEDS: LINAGLIPTIN PO SCH ×2 (08:54→20:02)
[2017-04-02] MEDS: Metoprolol TARTRATE Tab 50 MG TAB PO SCH ×2 (08:54→20:02)
[2017-04-02] MEDS ORDERED: CICLOPIROX TOPICAL SCH (09:00)
--- NOTE | 2017-04-02 09:46 | OTI REPORT ---
Thank you for the referral of Arvind Ndiaye. He was seen on 04/01/17 for an occupational therapy swallow evaluation. SUBJECTIVE: The patient is a 71-year-old male who has a history of a CVA that has affected his left side. Per his nurse report, his whole right lung is filled in the upper, middle, and lower lobes with pneumonia which more than likely is aspiration pneumonia. PAST MEDICAL HISTORY: Past medical history can be found in the patient's medical record. OBJECTIVE FINDINGS: Pre-Swallow Assessment: Alertness and responsiveness: The patient is alert and responsive. Reliable responses: The patient demonstrates questionable yes and no reliability. His was able to answer a little bit more of his history and stated concerns that they are having with his swallowing. Facial symmetry: The patient does demonstrate facial symmetry. Volitional dry swallow: The patient does demonstrate a volitional dry swallow. Neglect: The patient does not demonstrate neglect per say; however, he does have some hemiplegia on the left side. Apraxia: When swallowing the patient does not demonstrate apraxia. Cough: The patient's cough was raspy. Nutrition and intake method: Usually the patient is on a regular diet with thin liquids and no precautions. Respiratory status: The patient is not on oxygen. Secretions: The patient is able to handle his own secretions. Temperature: The patient's temperature has been within normal limits. Dentition: The patient has 9 teeth on top and 12 teeth on the bottom. Lip control: Lip control was good. Lingual function: Lingual function was within normal limits. Lateralization: The patient had good lateralization to the left and right and up and down and was able to lateralize in the upper and lower sulci of the mouth. Sensation: Sensation of the buccal area was good. Gag reflex: The patient has an intact gag reflex. General observations: The patient was sitting in chair when the therapist arrived. The patient's reports that once in a while he will choke on just about anything, but it is not consistent. He does report that sometimes he regurgitates his food and then he can cough hard. His reports that in the last three months he has probably only had 6 hard coughing spells. In the past week the patient has had a chest and head cold. If he does develop his hard cough, he just keeps on coughing and sometimes throws up. Per the patient and his , the patient has difficulties with fried potatoes, biscuits and gravy, and popcorn. Feeding Assessment: During the feeding assessment the patient's automatic swallow was intact. He has approximately 75% of laryngeal elevation. He was assessed with pureed, mechanical soft, and regular food items today. The pureed food consisted of pudding, mechanical soft food was a diced peach cup, and the regular food item was a ham and cheese sandwich on bread with mayonnaise. The patient was also assessed with thin liquid. We started with the thin liquid. The patient had good bolus control and swallow transit time. The patient demonstrated 75% laryngeal elevation and was negative for cough. Voice post feed was the same. We then started with pureed food and this went well in all areas. With the peaches, the patient demonstrated decent bolus control, good swallow transit time, 1-2 swallows per bolus. Laryngeal elevation remained at 75%. The patient ate approximately 3/4 of the fruit cup and on the last bite he did start coughing. This may be because of the mixed food texture with the thin liquid. We then went on to regular food items. The patient ate approximately 1 /4 of the sandwich in front of the therapist and on the last bite he did end up with a slight cough, but not a hard cough. The patient drank thin liquid in between and did not demonstrate any external signs of aspiration. The patient reports that medication sometimes gets stuck, but not consistently. His reports that he likes to take all of his medications at once per handful. The patient's also reports that the patient does take Meproprozal for reflux. She reports that if he does not take this, he does get quite a bit of reflux. She states they do not have an angled bed at this time. RECOMMENDATIONS: 1. Because of the right lung, the patient may be silently aspirating. It is highly recommended that we do a modified barium swallow study tomorrow if possible. 2. The occupational therapist is going to put the patient on a more restricted diet secondary to the right lung being filled. The patient should eat a mechanical soft diet. The patient should grind all meats. The patient should drink nectar thickened liquids. The patient should remain upright during all meal times. 3. Medications should be placed in a pureed food and swallowed vs. taken with a thin liquid. ASSESSMENT: The patient's nurse was informed of the results. The therapist could not get a hold of Dr. Gabriel as of last night, but gave information to the nurse to relay to Dr. Gabriel. SWALLOW GOALS: Patient will be able to eat 100% of selected diet without external signs of aspiration. Patient will learn pharyngeal strengthening exercises. TREATMENT PLAN: We will recommend further treatment following the modified barium swallow study. INITIAL TREATMENT: Treatment today consisted of the swallow evaluation activities only. MIGUEL
[2017-04-02] MEDS ORDERED: ACETAMINOPHEN 325 MG TABLET PO ONE (10:35)
[2017-04-02] MEDS: cefTRIAXone Inj 2 GM in Sodium Chloride 0.9% 100 ML IV SCH (11:16)
--- NOTE | 2017-04-02 11:45 | PDOC(PROG) ---
Interval History: Patient doing much better today respiratory-basurto his white count is decreased no chest pain nausea vomiting Objective : Data - Labs CBC and BMP: 04/02/17 04:10 04/02/17 04:10 Objective : Exam - General General Appearance: No Acute Distress, Cooperative - Respiratory Respiratory Exam: Clear to Auscultation - Bilaterally, Breathing Non Labored, Normal To Percussion, Normal to Percussion and Palpation - Cardiovascular Cardiovascular Exam: RRR, No Murmur, No Clicks, No Gallops, No Rubs, PMI Non- Displaced - GI/Abdominal GI/Abdominal Exam: Normal Bowel Sounds, Non Tender, Non Distended, Soft, No Masses, No Hepatomegaly, No Splenomegaly, No Organomegaly - Extremities Extremities Exam: No Clubbing Present, No Edema Present Assessment and Plan - Patient Problems (1) Pneumonia Current Visit: Yes Status: Acute Comment: Continue IV antibiotics most likely aspiration component patient will have a swallow study today also his diet was changed to soft mechanical patient looks very weak considering his age will consult PT and OT Code(s): J18.9 - Pneumonia, unspecified organism (2) Hypokalemia Current Visit: Yes Status: Acute Comment: Replaced. IV fluids Code(s): E87.6 - Hypokalemia (3) Hypomagnesemia Current Visit: Yes Status: Acute Comment: Replaced Code(s): E83.42 - Hypomagnesemia (4) Diabetes mellitus, type 2 Current Visit: No Status: Acute Comment: Stable at present time Qualifiers: (5) Dyslipidemia Current Visit: No Status: Acute Onset Date: 03/11/12 Comment: Continue statin Code(s): E78.5 - Hyperlipidemia, unspecified (6) Coronary artery disease Current Visit: No Status: Chronic Code(s): I25.10 - Atherosclerotic heart disease of [place] coronary artery without angina pectoris Qualifiers: (7) Obstructive sleep apnea syndrome Current Visit: No Status: Chronic Comment: Stable (8) Generalized weakness Current Visit: Yes Status: Acute Comment: Consult PTOT Code(s): R53.1 - Weakness
[2017-04-02] MEDS ORDERED: FUROSEMIDE 10 MG/1 ML - 2 ML VIAL IVP SCH (13:00)
--- NOTE | 2017-04-02 13:25 | DI ---
MODIFIED ESOPHAGRAM, 04/02/2017 8:00 AM : Clinical History: Pneumonia. Previous Exam: 10/05/2015. A "time out" session was performed to verify the patient's name and date of prior to initiating this procedure. This examination is performed in conjunction with Occupational Therapy to evaluate t he patient's swallowing function. Different texture grades of barium impregnated substances were offe red to the patient, ranging from thin liquids to thick liquids to solids. Please see the occupational therapist's report. Deglutition is normal and the esophagus strips appropriately for the patient's age. There is no evide nce of aspiration while swallowing. There is no pooling of material in the pyriform sinuses but there is retention of solid material in the vallecula. There is no Zenker's diverticulum. There is a hiata l hernia with a Schatzki's ring. Immediately inferior to the Schatzki's ring is a collection of bariu m that apparently arises off of the fundus of the stomach. This has the appearance of a diverticulum. READIN. No aspiration was noted with swallowed food materials consisting of thin liquids to solid foods. 2. There is a hiatal hernia with a Schatzki's ring. Along the right lateral margin of the fundus is a diverticulum. This was present in retrospect but not identified in the report of the prior exam. Th ere has been no change in the overall appearance.
[2017-04-02] MEDS: Pravastatin 80mg Tab PO SCH (20:01)
[2017-04-02] MEDS: OMEPRAZOLE 20 MG CAPSULE PO SCH (20:02)
[2017-04-02] MEDS: SOLIFENACIN SUCCINATE 5 MG ORAL SCH (20:02)
[2017-04-02] MEDS ORDERED: ACETAMINOPHEN 325 MG TABLET PO PRN (20:14)
[2017-04-03] MEDS: metroNIDAZOLE 500mg (Premix) 500 MG/100 ML BAG IV SCH ×3 (00:31→16:30)
[2017-04-03] MEDS: HEPARIN 5000 UNIT/1 ML SUBCUT SCH ×3 (04:20→20:19)
[2017-04-03 05:21] LABS: Hematocrit [HCT] 41.7 % (42.0-52.0); Hemoglobin [HGB] 14.3 g/dL (14.0-18.0); MEAN CORPUSCULAR HEMOGLOBIN 30.2 PG (27-31); MEAN CORPUSCULAR HGB CONC 34.3 g/dL (33-37); MEAN CORPUSCULAR VOLUME 88.2 FL (80-90); MEAN PLATELET VOLUME 10.7 FL (7.4-12.2); RED BLOOD COUNT 4.73 10^6/uL (4.70-6.10)
[2017-04-03 05:28] LABS: BLOOD UREA NITROGEN 10 mg/dL (7-22); BUN/CREATININE RATIO 14.28 (6-20); SERUM ALBUMIN 3.7 g/dL (3.5-4.8)
[2017-04-03] MEDS: IPRATROPIUM/ALBUTEROL SULFATE 3 ML NEB NEB PRN ×2 (06:18→11:24)
[2017-04-03] MEDS: Multivitamin Tab 1 TAB PO SCH (08:20)
[2017-04-03] MEDS: LOSARTAN 50 MG TABLET PO SCH (08:20)
[2017-04-03] MEDS: METFORMIN HCL PO SCH ×2 (08:20→20:19)
[2017-04-03] MEDS: ASPIRIN 81 MG (BABY) CHEWABLE TABLET PO SCH (08:20)
[2017-04-03] MEDS: ASCORBIC ACID 500 MG TABLET PO SCH (08:20)
[2017-04-03] MEDS: Metoprolol TARTRATE Tab 50 MG TAB PO SCH ×2 (08:20→20:18)
[2017-04-03] MEDS: DONEPEZIL HCL 23 MG PO SCH (08:20)
[2017-04-03] MEDS: Calcium/Vit D 600mg/400u Tab 1 TAB TABLET PO SCH (08:20)
[2017-04-03] MEDS: LINAGLIPTIN PO SCH ×2 (08:20→20:19)
[2017-04-03] MEDS: Beta Carot W/Vit E,C,Min Tab 1 TAB TAB PO SCH (08:20)
--- NOTE | 2017-04-03 10:08 | PT.PROG ---
Progress Note Progress Note: S. Patient stated that he is feeling alright this morning. O. Patient ambulated 175 feet to the therapy gym where he used the arm bike x 10 minutes then performed seated exercises in the form of; long arc quads, heel toe raises, marches, ball squeezes, clam shells all x 10 bilaterally, sit to stands x 7 then ambulated 100 feet around the therapy gym and to the cantu where he was wheeled back to his room and transferred to the chair and was left with alarm and call light. A. Patient tolerated therapy well, he continues to struggle with his balance however was able to ambulate with min assist. He requires frequent rest breaks to recover from fatigue however was able to complete all exercises. He would continue to benefit from skilled therapy to increase strength, mobility and safely transfer. P. Continue POC.
--- NOTE | 2017-04-03 10:25 | PTI REPORT ---
Thank you for the referral of Arvind Ndiaye. He was seen on 04/02/17 for an inpatient evaluation secondary to generalized weakness. SUBJECTIVE: The patient is a 71-year-old male. The patient denies being in any discomfort. The patient reports he lives at home with his with two to three steps to enter the home. The patient states he has one flight of stairs to get to his basement, which he says he rarely goes down. There are bilateral hand rails available. The patient states he ambulates with a single point cane in the right upper extremity. The patient's chief complaint at this time is that he has poor balance and has fallen twice in the last six months. PAST MEDICAL HISTORY: Past medical history can be found in the patient's medical record. OBJECTIVE FINDINGS: Bed mobility: The patient is able to complete bed mobility including rolling from left to right and right to left with modified independent. The patient is able to complete supine to sit transfer with min assist. Transfers: The patient is able to transfer from sit to stand to single axis cane with min assist. Range of motion: Range of motion is within functional limits throughout bilateral lower extremities. Strength: Manual muscle testing of right lower extremity demonstrates strength of 4-/5 throughout. Left lower extremity demonstrates strength of 3+/5 for hip abduction and 4-/5 throughout remainder. Ambulation: The patient was able to ambulate x15 feet with single point axis cane with min assist. Balance: The patient was able to complete Romberg x30 seconds with eyes closed. The patient was able to demonstrate 4" on a forward reach test and was able to ambulate heel to toe x5 feet with two mild losses of balance which was corrected with stepping strategy. The patient demonstrates good static sitting and dynamic balance, fair static standing balance, and poor dynamic standing balance. ASSESSMENT: The patient has subjective and objective findings with generalized deconditioning and poor balance and at this time is a HIGH risk for falls and would benefit from continued skilled care to decrease fall risk and increase abilities for transfers without assistance. Short-Term Goals: To be met by discharge from inpatient: Patient will be able to complete sit to stand transfer with stand by assist. Patient will demonstrate 4/5 bilateral lower extremity strength for carry over safety with gait and transfers. Patient will demonstrate fair dynamic standing balance. Long-Term Goals: To be met following discharge from inpatient: Patient will demonstrate 4+/5 bilateral lower extremity strength. Patient will demonstrate fair plus dynamic and static standing and seated balance. Patient will be able to complete all transfers with independence. TREATMENT PLAN: Patient will be seen B.I.D during the week and one time per day over the weekend as an inpatient to address the above goals and objectives. INITIAL TREATMENT: Treatment today consisted of the initial evaluation followed by range of motion , manually resisted activities, and ambulation x15 feet with a single point cane and min assist. The patient was left in chair with bed alarm on and feet elevated in no apparent distress. Nursing was notified. MIGUEL
--- NOTE | 2017-04-03 10:45 | PDOC(PROG) ---
Interval History: Patient is doing much better today he is even gotten dressed and thinking he was going home normal respiratory symptoms Objective : Data - Labs CBC and BMP: 04/03/17 04:20 04/03/17 04:20 Objective : Exam - General General Appearance: No Acute Distress, Cooperative - Respiratory Respiratory Exam: Clear to Auscultation - Bilaterally, Breathing Non Labored, Normal To Percussion, Normal to Percussion and Palpation - Cardiovascular Cardiovascular Exam: RRR, No Murmur, No Clicks, No Gallops, No Rubs, PMI Non- Displaced - GI/Abdominal GI/Abdominal Exam: Normal Bowel Sounds, Non Tender, Non Distended, Soft, No Masses, No Hepatomegaly, No Splenomegaly, No Organomegaly - Extremities Extremities Exam: No Clubbing Present, No Edema Present, No Cyanosis Present Assessment and Plan - Patient Problems (1) Pneumonia Current Visit: Yes Status: Acute Comment: Improved continue IV antibiotics total 7 days Code(s): J18.9 - Pneumonia, unspecified organism (2) Hypokalemia Current Visit: Yes Status: Acute Comment: Replaced and resolved Code(s): E87.6 - Hypokalemia (3) Hypomagnesemia Current Visit: Yes Status: Acute Comment: Replaced Code(s): E83.42 - Hypomagnesemia (4) Diabetes mellitus, type 2 Current Visit: No Status: Acute Comment: Stable at present time Qualifiers: (5) Dyslipidemia Current Visit: No Status: Acute Onset Date: 03/11/12 Comment: Continue statin Code(s): E78.5 - Hyperlipidemia, unspecified (6) Coronary artery disease Current Visit: No Status: Chronic Comment: Stable Code(s): I25.10 - Atherosclerotic heart disease of [place] coronary artery without angina pectoris Qualifiers: (7) Obstructive sleep apnea syndrome Current Visit: No Status: Chronic Comment: Improved (8) Generalized weakness Current Visit: Yes Status: Acute Comment: I discussed the case with occupational therapy patient has a swallow eval was negative his white count is improving he still weak from her stroke he had a long time ago the family wishes to do outpatient physical therapy most likely will be discharging home tomorrow Code(s): R53.1 - Weakness
--- NOTE | 2017-04-03 10:54 | OTI REPORT ---
Thank you for the referral of Arvind Ndiaye. He was seen on 04/02/17 for a modified barium swallow study. SUBJECTIVE: The patient is a 71-year-old male. The patient reports that the mechanical soft diet and nectar thickened liquid is going okay. PAST MEDICAL HISTORY: Past medical history can be found in the patient's medical record. OBJECTIVE FINDINGS: Today the patient was brought to the video fluoroscopy room. We had a little bit of a delay secondary to the machine breaking down and needing to be rebooted. We assessed the patient in a lateral view with thin liquid, diced peaches, and ham. We also looked at an anterior view with the peaches and ham as well as thin liquid. In a lateral view, it was observed that the patient has good lip closure. He does take increased time to chew the regular food items. He has a slight decrease in AP transit. He has slight pocketing of some food in the left sulci of the lower part of the mouth. He did have a mild amount of premature spillage with the peaches. He has slight decreased tongue based retraction and some stasis and coding. His swallow trigger was delayed when asked to swallow. It takes him increased time to initiate a swallow upon command. He does demonstrate piecemeal deglutition; he did piecemeal his bolus into several pieces before making the swallow. He was negative for oral nasal regurgitation. He has mild to moderate decrease in hyoid thyroid approximation as well as hyoid protraction and laryngeal elevation. With the peaches, he had slight penetration of the liquid but did not demonstrate aspiration today with the thin liquid or with any of the food items, or with food and thin liquid combined. He has decreased pharyngeal squeeze. He has a mild amount of vallecular pooling and a moderate to severe amount of piriformis pooling. He also has a lot of residual in the piriformis, but less in the vallecular region. His UES opened while letting food and liquid through. He did look to have a slight decrease in esophageal motility and in the radiology report there will probably be LES possible constriction. We saw these symptoms in a lateral view as well as in an anterior view. It looked like the piriformis and the valleculae contracted symmetrically; however, we also asked the patient to swallow two to three times per bolus and he still was not able to 100% clear the valleculae and the piriformis sinuses. The patient still had approximately 25-50% pooling in the piriformis. DYSFUNCTION: Decreased tongue based retraction Decreased BP closure Decreased hyolaryngeal excursion Moderate to severe decrease in pharyngeal contraction Patient may have some esophageal motility issues IMPAIRED MUSCLE GROUPS: Hyolaryngeal excursion muscles Laryngeal intrinsics Pharyngeal constrictors ASSESSMENT: The patient did not demonstrate aspirating in the modified barium swallow study today; however, he is at higher risk for possible aspiration as he does have a moderate to severe amount of pooling in the piriformis sinuses and a mild to moderate amount in the vallecular region. The patient does demonstrate weakness in the larynx and pharynx areas. Even though the patient did not demonstrate aspiration, a long discussion was had with the doctor as well as the patient and his about leaving him on the recommended diet that was prescribed prior to the modified barium swallow study because of his high risk of possible aspiration, even though it was not noted. He is having quite a bit of pooling and with a full meal, he would have increased difficulty trying to clear this region, causing an increased chance of aspiration. RECOMMENDATIONS: 1. The patient should remain on a mechanical soft diet. 2. The patient should have meats ground. 3. The patient should have nectar thickened liquids with his meals as this decreases his chance of aspirating. 4. The patient would benefit from pharyngeal strengthening exercises. 5. We will continue to talk to the family about vital-stim as a neuromuscular electrical stimulation to the pharyngeal region. 6. The patient would probably benefit from a placement of 3A or 3B in order to improve the pharyngeal constrictors. In order to participate in vital-stim, the patient needs to be very motivated, needs to be able to comprehend the exercises, and needs to continue to follow through with the exercises, even when he is not in therapy to strengthen the pharyngeal region. The therapist will talk to the patient about how to prepare food on a mechanical soft diet, how to grind meats, and the benefits of nectar thickened liquid during mealtime. INITIAL TREATMENT: Treatment today consisted of the modified barium swallow study only. MIGUEL
[2017-04-03] MEDS: cefTRIAXone Inj 2 GM in Sodium Chloride 0.9% 100 ML IV SCH (11:29)
[2017-04-03] MEDS: NORMAL SALINE 10 ML SYRINGE FLUSH IVP PRN ×2 (11:29→16:30)
--- NOTE | 2017-04-03 15:13 | OTI REPORT ---
Thank you for the referral of Arvind Ndiaye. He was seen on 04/03/17 for an occupational therapy inpatient evaluation secondary to generalized weakness. SUBJECTIVE: The patient is a 71-year-old male who is being seen secondary to weakness, balance difficulties, and swallowing difficulties. The patient came in with a bout of pneumonia. The patient and his report that he has had a history of CVA effects on the left side including some balance difficulties. Prior to admission the patient reports he was independent with simple ADLs such as dressing himself, getting in and out of the shower, and transferring onto and off of the toilet and his is in charge of a lot of the iADLs including medication management, shopping, financial services officer, and running the household. Before this inpatient evaluation the patient was seen for a modified barium swallow study. PAST MEDICAL HISTORY: Past medical history can be found in the patient's medical record. OBJECTIVE FINDINGS: Transfers: Today the patient was able to complete transfers with contact guard assist and use of cane. When he was ambulating in between objects during the transfer he needed min assist as his left toe does drag slightly and it gets caught on the carpet. He did have sticky socks on today and this may have been part of the reason. With shoes it could be different. Pain: The patient reports his left shoulder is very painful. He has a 3/4 inch subluxation of the humeral head. The patient rates his pain as a 7/10 on the verbal analog scale (0=no pain, 10=worst pain) with movement and resistance. Normally he states his pain level is 2-3/10 with a very consistent dull pain. Range of motion: Upper extremity range of motion on the right is all within functional limits. Left shoulder flexion was 0 to 80 degrees. Abduction was 0 to 50 degrees. Elbow flexion/extension was within normal limits. Wrist flexion /extension was within normal limits. Strength: Strength in the right upper extremity is 4+/5 for shoulder flexion and abduction, elbow flexion/extension, and wrist flexion/extension. Activities of daily living: The patient was able to complete dressing tasks including donning shorts and shirt independently after set up as well as donning and doffing socks independently. The patient requires min assist for toilet transfers for balance. Cognition: Safety awareness was present, but he demonstrates more of a concrete thinking level. ASSESSMENT: Problem List: Decreased strength Decreased safety with functional transfers Limitations with left upper extremity (this is long standing) Short-Term Goals: To be met by discharge from inpatient: Patient will be able to dress self independently including set up by obtaining clothes out of closet safely. Patient will increase upper extremity strength to 5/5 on the right and be able to consistently use left upper extremity as a helper hand with bilateral tasks independently. Patient will be independent in two swallow strengthening maneuvers including the effortful swallow and [place] maneuvers. Patient and will understand mechanical soft altered diet along with nectar thickened liquid. Long-Term Goals: To be met following discharge from inpatient: Patient will return to baseline and be safe to return home with all ADLs and functional transfers. TREATMENT PLAN: Patient will be seen B.I.D during the week and one time per day over the weekend as an inpatient to address the above goals and objectives. OT will continue to address swallow strengthening exercises and provide the family with education on a mechanical soft diet and nectar thickened liquids. INITIAL TREATMENT: Treatment today consisted of the initial evaluation. OT came in when the patient was dressing self which he was doing independently after set up. It does take him increased time due to left upper extremity coordination difficulties, but the patient is able to compensate well. The patient completed upper extremity activities including arm bike forward and backward; however, this did hurt the left upper extremity. We also worked on wall pulleys with 2 kilograms on the right side for shoulder extension, shoulder adduction, internal/external rotation, rows, and biceps. On the left side we had to go to .5 kilograms. He had to take it nice and slow as he did have slight pain, but he was able to perform extension, adduction, rows, and biceps curls. [facility]
--- NOTE | 2017-04-03 15:50 | OT.PROG ---
Progress Note Progress Note: S: pt was in good mood, agreed to go down for therapy. He did not relate any pain at this time,but he did state that he's probably not going to be able to scoop walk again. O: pt was seen in his room and just finishing up toilet transfer with nursing. He was then transferred down to therapy in w/c. He completed transfer to step and participated for up to 8 min to increase activity tolerance. He then transferred to mat table with CGA for safety. He completed UE exercises with RTB in all planes x15 with BUE's to increase his strength. He then completed dynamic standing balance activity for 2x4 min each to increase overall balance during transfers. Pt then began PT as they returned him to his room as well. A: pt participated well throughout therapy. His balance is poor during transfers , but has been for years and will continue to be a fall risk. He actually demonstrated good activity tolerance throughout the afternoon. P: continue per POC.
--- NOTE | 2017-04-03 16:08 | PT.PROG ---
Progress Note Progress Note: S. Patient stated that he is feeling a little better this afternoon. O. Patient ambulated approximately 30 feet then was wheeled to the therapy gym where he performed seated exercises in the form of; long arc quads, heel toe raises, marches, ball squeezes, clam shells, resisted knee flexion, all x 10 bilaterally, sit to stands x 5. Patient stood 3x1 minute. Patient ambulated approximately 80 feet to the wheelchair and was returned to his room where he was left in his chair with alarm and call light. A. Patient tolerated therapy well this afternoon. He continues to have balance deficits however he has had poor balance since his original stroke. Patient would continue to benefit from Outpatient therapy at this time. P. Continue POC until discharge.
[2017-04-03] MEDS: Pravastatin 80mg Tab PO SCH (20:18)
[2017-04-03] MEDS: OMEPRAZOLE 20 MG CAPSULE PO SCH (20:19)
[2017-04-03] MEDS: SOLIFENACIN SUCCINATE 5 MG ORAL SCH (20:19)
[2017-04-04] MEDS: metroNIDAZOLE 500mg (Premix) 500 MG/100 ML BAG IV SCH ×2 (01:15→08:19)
[2017-04-04 05:17] LABS: BASOPHILS # (AUTO) 0.04 10*3/UL; BASOPHILS % (AUTO) 0.4 % (0-1); EOSINOPHILS # (AUTO) 0.38 10*3/UL; EOSINOPHILS % (AUTO) 3.7 % (0-8); Hematocrit [HCT] 43.7 % (42.0-52.0); Hemoglobin [HGB] 15.2 g/dL (14.0-18.0); LYMPHOCYTES # (AUTO) 1.61 10*3/uL; MEAN CORPUSCULAR HEMOGLOBIN 30.1 PG (27-31); MEAN CORPUSCULAR HGB CONC 34.8 g/dL (33-37); MEAN CORPUSCULAR VOLUME 86.5 FL (80-90); MEAN PLATELET VOLUME 10.2 FL (7.4-12.2); MONOCYTES % (AUTO) 6.8 % (5-15); NEUTROPHILS # (AUTO) 7.55 10*3/UL; NEUTROPHILS % (AUTO) 73.2 % (50-80); RED BLOOD COUNT 5.05 10^6/uL (4.70-6.10)
[2017-04-04 05:21] LABS: PLATELET MORPHOLOGY COMMENT NORMAL MORPHOLOGY (NORM); RBC MORPHOLOGY COMMENT NORMAL MORPHOLOGY (NORM); WBC MORPHOLOGY COMMENT NORMAL MORPHOLOGY (NORM)
[2017-04-04 05:28] LABS: BLOOD UREA NITROGEN 12 mg/dL (7-22); BUN/CREATININE RATIO 17.14 (6-20); SERUM ALBUMIN 3.6 g/dL (3.5-4.8)
[2017-04-04] MEDS: HEPARIN 5000 UNIT/1 ML SUBCUT SCH (05:34)
[2017-04-04] MEDS: IPRATROPIUM/ALBUTEROL SULFATE 3 ML NEB NEB PRN ×2 (07:40→11:27)
[2017-04-04] MEDS: Multivitamin Tab 1 TAB PO SCH (08:16)
[2017-04-04] MEDS: Beta Carot W/Vit E,C,Min Tab 1 TAB TAB PO SCH (08:16)
[2017-04-04] MEDS: LOSARTAN 50 MG TABLET PO SCH (08:16)
[2017-04-04] MEDS: Metoprolol TARTRATE Tab 50 MG TAB PO SCH (08:16)
[2017-04-04] MEDS: Calcium/Vit D 600mg/400u Tab 1 TAB TABLET PO SCH (08:16)
[2017-04-04] MEDS: ASCORBIC ACID 500 MG TABLET PO SCH (08:16)
[2017-04-04] MEDS: ASPIRIN 81 MG (BABY) CHEWABLE TABLET PO SCH (08:16)
[2017-04-04] MEDS: METFORMIN HCL PO SCH (08:17)
[2017-04-04] MEDS: DONEPEZIL HCL 23 MG PO SCH (08:17)
[2017-04-04] MEDS: LINAGLIPTIN PO SCH (08:17)
[2017-04-04] MEDS: NORMAL SALINE 10 ML SYRINGE FLUSH IVP PRN (08:20)
--- NOTE | 2017-04-04 11:28 | PT.PROG ---
Progress Note Progress Note: S. Patient stated that he wants to go home. He reports that he is feeling better today. O. Patient ambulated 150 feet around the nurses station then performed seated exercises in the form of; long arc quads, heel toe raises, marches, sit to stands all x 10 bilaterally. Patient was left in chair with alarm and call light. A. patient tolerated therapy well, he continues to require verbal cues to slow down while walking to help with his balance. Patient reported he feels safer when he slows down. Patient continues to be weak and have balance deficits however he has had balance deficits since his first stroke. Patient would benefit from Outpatient therapy. P. Continue POC.
[2017-04-04 11:44] VITALS: BP 133/61; RESP 20; TEMP 97
--- NOTE | 2017-04-04 12:54 | DCSUMMARY ---
Hospitalization Summary Hospital Course: Final Discharge Diagnosis: #1 COPD exacerbation #[address] scan #3 hypomagnesemia Diagnostic Data, Laboratory Data, and Procedures of Signifigance: Laboratory Results 04/04/17 04/04/17 Range/Units 04:55 04:55 WBC 10.31 (4.8-10.8) 10^3/uL RBC 5.05 (4.70-6.10) 10^6/uL Hgb 15.2 (14.0-18.0) g/dL Hct 43.7 (42.0-52.0) % MCV 86.5 (80-90) FL MCH 30.1 (27-31) PG MCHC 34.8 (33-37) g/dL RDW Std Deviation 42.9 (39-50) fL RDW Coeff of Mk 13.6 (11.5-14.5) % Plt Count 247 (140-350) 10*3/uL MPV 10.2 (7.4-12.2) FL Immature Gran % (Auto) 0.3 (0-5) % Neut % (Auto) 73.2 (50-80) % Lymph % (Auto) 15.6 (10-50) % [place] % (Auto) 6.8 (5-15) % Eos % (Auto) 3.7 (0-8) % Baso % (Auto) 0.4 (0-1) % Immature Gran # (Auto) 0.03 10*3/UL Neut # (Auto) 7.55 10*3/UL Lymph # (Auto) 1.61 10*3/uL [place] # (Auto) 0.70 (0.3-0.8) 10*3/UL Eos # (Auto) 0.38 10*3/UL Baso # (Auto) 0.04 10*3/UL WBC Morphology Comment Normal morphology (NORM) Plt Morphology Comment Normal morphology (NORM) RBC Morph Comment Normal morphology (NORM) Sodium 144 (135-145) meq/L Potassium 3.9 (3.8-5.2) meq/L Chloride 107 (98-112) meq/L Carbon Dioxide 21 L (23-33) meq/L Anion Gap 16 (5-20) BUN 12 (7-22) mg/dL Creatinine 0.7 (0.70-1.50) mg/dL BUN/Creatinine Ratio 17.14 (6-20) Glucose 138 H (78-110) mg/dL Calculated Osmolality 299.0 H (267-292) mOsm/kg Calcium 9.2 (8.7-10.7) mg/dL Total Bilirubin 0.7 (0.3-1.2) mg/dL AST 16 L (21-57) IU/L ALT 34 (21-72) IU/L Alkaline Phosphatase 88 (38-126) IU/L Total Protein 6.4 (6.1-8.0) g/dL Albumin 3.6 (3.5-4.8) g/dL Globulin 2.8 (2.50-4.10) g/dL Albumin/Globulin Ratio 1.20 L (1.3-2.0) mg/g History and Physical pertinent to Admission: Past Medical History Medical History: 1. Diabetes mellitus type II. 2. History of cerebrovascular accident with left-sided weakness. 3. Confusion, question dementia. No change on Aricept. 4. Hypertension. 5. Coronary artery disease status post stent in the past. 6. obstructive sleep apnea with non-tolerance of CPAP therapy. 7. Status post aortic valve replacement (bovine) Surgical History: 1. Coronary stent placed. 2. Aortic valve replacement. 3. Back surgery. 4. Knee replacement on the right side Pertinent Family History: Significant for congestive heart failure in his mother and history of stroke in his sister Past Social History: Does not smoke or drink. for 35 years. Has children described as healthy. Tobacco Use: Never Smoker Course of Hospitalization: This very nice 71-year-old gentleman with past medical history of remote CVA, coronary artery disease comes in with shortness of breath diagnosed with community-acquired pneumonia. CT scan picture resembled a CT scan done 1 year ago for his pneumonia Dr. Frost was concerned and I did call the cable puller in [place] Dr. ENGLAND he reviewed the CAT scan and recommended another CAT scan in 6 months and follow-up with the pulmonary referral was made patient was walked around and desatted to 89% but did not go below that by respiratory therapy. He is much improved PT recommended outpatient physical therapy and which is what the family would like to do a referral was made for that as well we will continue 4 more days of Avelox to care cover anaerobes. Also swallow study was done which showed no aspiration. Patient has no complaints at present time and is very happy to be discharged home On the date of discharge, the patient was examined: Gen.: No acute distress, alert, nontoxic Heart: Regular rate and rhythm, no murmurs, clicks, gallops, or rubs Lungs: Clear to auscultation bilaterally, breathing is nonlabored Abdomen/GI: Normal tones on auscultation, soft, nontender, nondistended Musculoskeletal/extremities: No clubbing, cyanosis, or edema Vitals reviewed and are listed below Assessment and Plan: 1. As per discharge assessments above 2. Disposition: Home 3. Condition on discharge, stable and improved. 4. Diet: regular diet 5. Activities: resume normal activities 6. Follow-Up: With pulmonary and primary care physician as well I discussed the case with his that he also needs another CT scan in 4-6 weeks 1. PCP 2. pulmonary in [place] referral was initiated 7. Medications at the Time of Discharge: Home Medications Medication Instructions Recorded Confirmed Type Aspirin [Baby Aspirin] 2 tab ORAL QD tab 09/05/10 04/01/17 History Docusate Sodium [Colace] 1 cap ORAL BID cap 01/31/12 04/01/17 History Multivitamin [Daily Vitamin] 1 tab ORAL QD tab 01/31/12 04/01/17 History Calcium Carb, Citrate/Vit D3 1 ea PO DAILY 09/10/12 04/01/17 History [Calcium + D3 ER Tablet] Walker [Ultra-Light Rollator] 1 ea MC ONCE #1 ea 10/26/14 04/01/17 History Vit C/E/Zn/Coppr/Lutein/Zeaxan 1 ea PO BID cap 06/26/15 04/01/17 History [Preservision Areds 2 Softgel] Clotrimazole 1 applic TOPICAL BID #60 tube 09/25/15 04/01/17 History Ciclopirox 6.6 ml TOPICAL DAILY #1 bottle 01/25/16 04/01/17 Rx Terbinafine HCl [Terbinafine] 15 gm TOPICAL BID #1 tube 01/25/16 04/01/17 Rx Metoprolol Tartrate 1 tab ORAL BID #180 tab 03/04/16 04/01/17 Rx Solifenacin Succinate [Vesicare] 1 tab ORAL QD #90 tab 05/14/16 04/01/17 Rx amlodipine 10 mg tablet 10 mg PO QD #90 tab 01/13/17 04/01/17 Rx dapagliflozin 5 mg tablet 5 mg PO QD #90 tab 01/13/17 04/01/17 Rx donepezil 23 mg tablet 23 mg PO QD #90 tab 01/13/17 04/01/17 Rx linagliptin 2.5 mg-metformin 1,000 1 tab PO BID #180 tab 01/13/17 04/01/17 Rx mg tablet losartan 100 mg tablet 100 mg PO QD #90 tab 01/13/17 04/01/17 Rx omeprazole 20 mg capsule,delayed 20 mg PO QHS #90 cap 01/13/17 04/01/17 Rx release pravastatin 80 mg tablet 80 mg PO QHS #90 tab 01/13/17 04/01/17 Rx tamsulosin 0.4 mg capsule 0.4 mg PO QHS #90 tab 01/13/17 04/01/17 Rx Ascorbic Acid [Vitamin C] 1,000 mg PO DAILY tab 04/04/17 Rx Beta Carot W/Vit E,C,Min Tab 1 tab PO DAILY tab 04/04/17 Rx [Ocuvite Tab] Moxifloxacin HCl [Avelox] 400 mg PO DAILY #5 tab 04/04/17 Rx 8. Time, care, counseling and coordination of care for this discharge is greater than 30 minutes. Exam - Vitals Vital Signs: Vital Signs Temperature 97 F Temperature Source Temporal Artery Scan Pulse Rate [Apical] 64 Pulse Rate [Pulse Oximeter] 69 Pulse Rate 74 Respiratory Rate 20 Blood Pressure [Right Arm] 133/61 Blood Pressure 117/59 Pulse Ox 92 Oxygen Flow Rate 2 Oxygen Delivery Method Room Air Height 5 ft 5 in Weight 232 lb 6 oz Patient Problems - Patient Problem List (1) Pneumonia Status: Acute Code(s): J18.9 - Pneumonia, unspecified organism Category: Medical (2) Hypokalemia Status: Acute Code(s): E87.6 - Hypokalemia Category: Medical (3) Hypomagnesemia Status: Acute Code(s): E83.42 - Hypomagnesemia Category: Medical (4) Diabetes mellitus, type 2 Status: Acute Qualifiers: Category: Medical (5) Dyslipidemia Status: Acute Onset Date: 03/11/12 Code(s): E78.5 - Hyperlipidemia, unspecified Category: Medical (6) Coronary artery disease Status: Chronic Code(s): I25.10 - Atherosclerotic heart disease of [place] coronary artery without angina pectoris Qualifiers: Category: Medical (7) Obstructive sleep apnea syndrome Status: Chronic Comment: not treated-couldn't tolerate mask. Category: Medical (8) Generalized weakness Status: Acute Code(s): R53.1 - Weakness Category: Medical
[2017-04-04 12:55] VITALS: O2SAT 89
--- NOTE | 2017-04-07 11:34 | OT AM DAY ---
Diagnosis : Weakness AM - Occupational Therapy S: The patient was seen in his room several times in the morning and he declined therapy or coming down for therapy. He thinks he might be going home today. O: The patient was seen in his room late this morning. Due to the fact that he was being discharged, he only completed upper extremity active range of motion exercises in his room after seeing PT. He completed shoulder flexion, shoulder abduction, biceps flexion, and sit to stands. A: The patient still displays poor balance and refuses to use a walker at times. P: Patient will be discharged to home. MIGUEL
== END 2017-04-04 13:10 | disposition home or self-care (01) | DRG 192 ==
LOC: ER 10:05 → MED/SURG 11:16
PROVIDERS: ADMIT Internal Medicine; ATTEND Internal Medicine

== ENCOUNTER 2018-06-28 08:45 | Inpatient (IN) ==
[2018-06-28] MEDS ORDERED: Sodium Chloride 0.9% 1,000 ML PRIMARY IV ONE (09:17)
--- NOTE | 2018-06-28 09:21 | EKG ---
[address] [address] Measurements Intervals [place] Rate: 53 P: 62 DE: 195 QRS: -50 QRSD: 113 T: 8 QT: 470 QTc: 454 Interpretive Statements SINUS BRADYCARDIA LEFT ANTERIOR FASCICULAR BLOCK Compared to ECG 04/01/2017 10:37:23 Sinus rhythm no longer present T-wave abnormality no longer present Prolonged QT interval no longer present Electronically Signed On 06-28-18 12:47:22 MDT by Yuval Bonner [email or web address]
[2018-06-28 09:25] LABS: Hematocrit [HCT] 39.4 % (42.0-52.0); Hemoglobin [HGB] 14.1 g/dL (14.0-18.0); MEAN CORPUSCULAR HEMOGLOBIN 31.3 PG (27-31); MEAN CORPUSCULAR HGB CONC 35.8 g/dL (33-37); MEAN CORPUSCULAR VOLUME 87.4 FL (80-90); MEAN PLATELET VOLUME 11.3 FL (7.4-12.2); RED BLOOD COUNT 4.51 10^6/uL (4.70-6.10)
[2018-06-28 09:31] LABS: BLOOD UREA NITROGEN 13 mg/dL (7-22); BUN/CREATININE RATIO 18.57 (6-20); SERUM ALBUMIN 3.8 g/dL (3.5-4.8)
[2018-06-28 09:49] LABS: PLATELET MORPHOLOGY COMMENT NORMAL MORPHOLOGY (NORM); WBC MORPHOLOGY COMMENT NORMAL MORPHOLOGY (NORM)
[2018-06-28 09:50] LABS: BAND NEUTROPHILS % 0 % (0-10); BASOPHILS % (MANUAL) 1 % (0-1); EOSINOPHILS % (MANUAL) 1 % (0-8); METAMYELOCYTES % 0 %; MONOCYTES % (MANUAL) 12 % (0-12); MYELOCYTES % 0 %; NEUTROPHILS % (MANUAL) 62 % (50-80); PROMYELOCYTES % 0 %; RBC MORPHOLOGY COMMENT SEE COMMENTS (NORM)
[2018-06-28 09:53] LABS: VENOUS PH 7.41 (7.32-7.42)
[2018-06-28 09:54] LABS: BILIRUBIN,URINE NEGATIVE (NEG); CLARITY,URINE CLEAR (CLEAR); COLOR,URINE YELLOW (Y); GLUCOSE, URINE (UA) NEGATIVE (NEG); OCCULT BLOOD,URINE NEGATIVE (NEG); PROTEIN,URINE NEGATIVE (NEG); UROBILINOGEN,URINE 0.2 EU/dL (0.2)
[2018-06-28 09:55] LABS: URINE SAMPLE TYPE CLEAN CATCH URINE
--- NOTE | 2018-06-28 10:44 | DI ---
CT HEAD SCAN WITHOUT IV CONTRAST, 06/28/2018 9:19 AM : Clinical History: Left leg weakness. Previous Exam: None at this facility. Technique: Performed from the foramen magnum to vertex without IV contrast. Contrast Volume: None. 4th Ventricle: Normal. 3rd Ventricle: Moderately dilated. Lateral Ventricles: Markedly dilated, especially in the right occipital horn. Sella: Normal size and normal pituitary gland. Both internal carotid arteries in the cavernous sinus are heavily calcified. Cerebrum: No acute hemorrhagic infarct. There is low density in the right posterior portion of the wh ite matter of the frontal lobe in the carrera radiata. This may represent either severe ischemic eduardo e or less likely an acute bland infarct since there is no mass effect. There are old infarcts in the left frontal lobe the right basal ganglia and the right occipital lobe associated with the dilated ri ght occipital horn. Extensive small vessel ischemic disease is also noted. Cerebellum: No acute hemorrhagic or bland infarct and no old infarct. No cerebellopontine angle mass. Normal cerebellar tonsillar position. Brainstem: Normal. Severe calcifications involving the vertebral arteries and the basilar artery. Atrophy: Focal severe atrophy in the areas of the infarcts of the left frontal lobe, the right occipi nazario lobe, and the right insula with diffuse atrophy in the remaining portions of the cerebrum. Modera te cerebellar atrophy. Extracerebral Mantles/Midline Shift: No extracerebral mantle or dural lesion. No midline shift. Sinuses: Normal. Skull: Old left skull fracture involving the left orbit superiorly with an old kateryna hole in the left frontal bone. READIN. There is a low-density area without mass effect in the anterior portion of the right centrum semi ovale that could involve portions of the motor strip. It is less likely to be an infarct because of t he lack of any mass effect. There are old infarcts involving the left frontal lobe (probably related to old trauma because of the left orbital fracture and left frontal kateryna hole), the right basal gangl ia, and the right occipital lobe. 2. Extensive small vessel ischemic disease. 3. Diffuse cerebral atrophy and cerebellar atrophy. 4. Very dense calcifications of both vertebral arteries and the basilar artery, and both carotid art eries in the cavernous and supraclinoid portions.
--- NOTE | 2018-06-28 10:51 | DI ---
AP /LATERAL CHEST, 06/28/2018 9:20 AM : Clinical History: Cough. Previous Exam: None at this facility. Soft Tissues: No acute soft tissue abnormality. On both views the patient took a shallow inspiration. Bones: Normal. Status post median sternotomy with aortic valve replacement. Heart: Normal heart. Extensive calcification of the left circumflex artery is seen on the lateral pro jection. Lungs: No infiltrates. Effusion(s): None. Mediastinum: Normal mediastinum. Nodules: No pulmonary nodules. Readin. No acute infiltrate or effusion. 2. Status post aortic valve replacement. Extensive vascular calcifications present in the left circu mflex artery.
--- NOTE | 2018-06-28 10:55 | DI ---
LEFT SHOULDER EXAM, 06/28/2018 9:23 AM: Clinical History: Trauma. Pain. Comparison Study: None at this facility. Views: 3 views. The patient could not move his arm. Soft Tissues: No soft tissue swelling. Effusion: No joint effusion present. Joints: Severe erosive change of the glenohumeral joint space. Moderate arthrosis of the AC joint Bones: No fracture or dislocation. Large bony spur along the inferomedial margin of the humeral head with remodeling of the glenoid fossa and humeral head. Lung: The visualized portions of the left apex and lung are normal. Reading: Severe erosive changes of the glenohumeral joint space with remodeling of the glenoid fossa and humer al head. Large bony spur on the inferior margin medially of the humeral head.
--- NOTE | 2018-06-28 11:04 | DI ---
CT ANGIOGRAM OF THE CHEST, 06/28/2018 10:01 AM : Clinical History: Left sided weakness. Elevated D-dimer test. Previous Exam: None at this facility. Technique: Scans from base of neck to lung bases with IV contrast. Bolus tracking protocol was used f or timing the injection. Non-MIPS and MIPS sagittal/coronal images generated. IV Contrast: 61 mL of Isovue 300. Base of Neck: Normal. Nodes: Normal axillary, supraclavicular, mediastinal, and hilar lymph nodes. Heart: Normal. Extensive and severe calcifications of the right coronary artery and left circumflex a rtery and the proximal half of the LAD. Aorta: Aortic valve replacement, otherwise normal thoracic aorta. No aneurysm or dissection. Pulmonary Arteries: Normal. No pulmonary emboli or infarcts; no pulmonary hypertension. Lungs: No infiltrates. Effusion(s): None. Nodules: None. Bony Structures: Normal visualized portions of ribs, sternum (status post median sternotomy), scapula e, clavicles, and shoulders. Normal visualized portions of thoracic spine. Limited Upper Abdomen: Normal adrenal glands and spleen. Normal limited views of liver and pancreas. READIN. Normal CTA of the chest. There are no pulmonary emboli or pulmonary infarcts. 2. Status post aortic valve replacement. Severe calcifications involving the left circumflex and rig ht coronary arteries and the proximal half of the LAD.
[2018-06-28] MEDS ORDERED: DOCUSATE 100 MG CAPSULE PO PRN (12:43)
[2018-06-28] MEDS ORDERED: ONDANSETRON 4 MG/2 ML VIAL IVP PRN (12:43)
[2018-06-28] MEDS ORDERED: CALCIUM CARBONATE 500 MG (TUMS) CHEWABLE TABLET PO PRN (12:43)
[2018-06-28] MEDS ORDERED: LIDOCAINE W/ SODIUM BICARB 0.5 ML SYR SUBD PRN (12:43)
[2018-06-28] MEDS: ASPIRIN 81 MG (BABY) CHEWABLE TABLET PO SCH (13:30)
[2018-06-28] MEDS: LOSARTAN 50 MG TABLET PO SCH (13:31)
[2018-06-28] MEDS: Lactated Ringers 1,000 ML PRIMARY IV SCH ×2 (14:30→22:04)
--- NOTE | 2018-06-28 18:39 | PDOC ---
HPI - History of Present Illness History of Present Illness: This very nice 73-year-old gentleman who fell this morning more than usual especially on the left and was brought to the ER for further evaluation. This happens especially when he gets out of bed to try to go to the bathroom he was unable to get up from the chair after his helped him and EMS was called and he was seen in the ER I was called by Dr. Rascon to admit the patient for possible abnormal CT scan of the new stroke I advised Dr. Rascon to call the neurologist at [facility] to give us his opinion. I was called back and according to Dr. Mireles it did not look like a new stroke and recommended MRI in the morning on my evaluation looks like patient's motor strength was back to normal on examination Past Medical History Medical History: 1. Diabetes mellitus type II. 2. History of cerebrovascular accident with left-sided weakness. 3. Confusion, question dementia. No change on Aricept. 4. Hypertension. 5. Coronary artery disease status post stent in the past. 6. obstructive sleep apnea with non-tolerance of CPAP therapy. 7. Status post aortic valve replacement (bovine) Surgical History: 1. Coronary stent placed. 2. Aortic valve replacement. 3. Back surgery. 4. Knee replacement on the right side Family History: Reviewed an Not Pertinent (No heart disease or cancers in the) Pertinent Family History: Significant for congestive heart failure in his mother and history of stroke in his sister Past Social History: Does not smoke or drink. for 35 years. Has children described as healthy. Tobacco Use: Never Smoker In the Past 12 Months, Have Used or Abuse Any of the Following Substance: None Medication / Allergies Home Medications: Home Medications Medication Instructions Recorded Confirmed Type Aspirin [Baby Aspirin] 2 tab ORAL QD tab 09/05/10 06/28/18 History Docusate Sodium [Colace] 1 cap ORAL BID cap 01/31/12 06/28/18 History Multivitamin [Daily Vitamin] 1 tab ORAL QD tab 01/31/12 06/28/18 History Calcium Carb, Citrate/Vit D3 1 ea PO DAILY 09/10/12 06/28/18 History [Calcium + D3 ER Tablet] Walker [Ultra-Light Rollator] 1 ea MC ONCE #1 ea 10/26/14 06/28/18 History Clotrimazole 1 applic TOPICAL BID #60 tube 09/25/15 06/28/18 History amlodipine 10 mg tablet 10 mg PO QD #90 tab 05/30/17 06/28/18 Rx Jentadueto 2.5 mg-1,000 mg tablet 1 tab PO BID #180 tab NS 10/10/17 06/28/18 Rx losartan 100 mg tablet 100 mg PO QD #90 tab 10/10/17 06/28/18 Rx omeprazole 20 mg capsule,delayed 20 mg PO QHS #90 cap 10/10/17 06/28/18 Rx release tamsulosin 0.4 mg capsule 0.4 mg PO QHS #90 tab 10/10/17 06/28/18 Rx fluticasone 50 mcg/actuation nasal 1 spray INASL QDAY PRN 01/12/18 06/28/18 History spray,suspension metoprolol tartrate 50 mg tablet 50 mg PO BID #7 tab 03/09/18 06/28/18 Rx pravastatin 80 mg tablet 80 mg PO QHS #90 tab 06/02/18 06/28/18 Rx Blood Sugar Diagnostic [Contour 0 ea .ROUTE .MEDSUPPLY 06/28/18 06/28/18 History Test Strip] Allergies/Adverse Reactions: Allergies Allergy/AdvReac Type Severity Reaction Status Date / Time Sulfa (Sulfonamide Allergy PT UNSURE Verified 06/28/18 09:06 Antibiotics) Review of Systems - Review of Systems All Systems: Reviewed & No Additional Complaints Except as Stated - Respiratory Respiratory: DENIES: Negative System Review, Cough, Sputum, Dyspnea At Rest, Dyspnea with Exertion, Pleuritic Pain, Hemoptysis, Wheezing, Other, See HPI - Cardiovascular Cardiovascular: DENIES: Negative System Review, Chest Pain, Edema, Syncope, Palpitations, Orthopnea, Paroxysmal Nocturnal Dyspnea, Other, See HPI Exam - Vitals Vital Signs: Vital Signs Temperature 97.6 F Temperature Source Temporal Artery Scan Pulse Rate [Pulse Oximeter 62 Left] Pulse Rate 68 Respiratory Rate 14 Blood Pressure [Right Arm] 154/65 Pulse Ox 92 Oxygen Delivery Method Room Air Height 5 ft 10 in Weight 216 lb - General General Appearance: No Acute Distress, Cooperative - Head Head Exam: Normal Inspection, Normocephalic, Atraumatic - Eye Eye Exam: POSITIVE: Normal Appearance, PERRL, EOMI, No Scleral Icterus - ENT ENT Exam: POSITIVE: Normal Exam, Normal External Ear Exam, Normal Oropharynx, TM's Normal Bilaterally, Mucous Membranes Moist - Neck Neck Exam: Normal Inspection, Full ROM, No Tenderness, No Lymphadenopathy, No Thyromegaly, JVP is not Raised - Respiratory Respiratory Exam: POSITIVE: Clear to Auscultation - Bilaterally, Breathing Non Labored, Normal To Percussion, Normal to Percussion and Palpation - Cardiovascular Cardiovascular Exam: POSITIVE: RRR, No Murmur, No Clicks, No Gallops, No Rubs, PMI Non-Displaced - GI/Abdominal GI/Abdominal Exam: POSITIVE: Normal Bowel Sounds, Non Tender, Non Distended, Soft, No Masses, No Hepatomegaly, No Splenomegaly, No Organomegaly - Extremities Extremities Exam: POSITIVE: No Clubbing Present, No Edema Present, No Cyanosis Present - Neurological Neurological Exam: POSITIVE: Alert, Oriented x 3, Reflexes Normal, CN II-XII Intact, No Facial Droop, Speech Intact / Clear, Moves All Extremities Equally, No Fasciculations, No Clonus Additional Neurological Exam Details: [place] 4 out of 5 on the left side 5 out of 5 on the right upper and lower extremity Results - Labs CBC and BMP: 06/28/18 08:35 06/28/18 08:35 Assessment and Plan - Patient Problems (1) Left-sided muscle weakness Current Visit: Yes Status: Acute Comment: Now resolved to normal motor strength 4 out of 5 on the left this is chronic from his previous CHF CVA. ER physician discussed case with Dr. Stovall neurology at [facility] no further therapy needed other than MRI in a.m. he does not believe this is a new CVA may be a continuation of the old one nothing acute as per Dr. Rascon's verbal report to myself Code(s): M62.81 - Muscle weakness (generalized)
[2018-06-28] MEDS: LINAGLIPTIN PO SCH (20:12)
[2018-06-28] MEDS: METFORMIN HCL PO SCH (20:12)
[2018-06-28] MEDS: OMEPRAZOLE 20 MG CAPSULE PO SCH (20:19)
[2018-06-28] MEDS: Pravastatin 80mg Tab PO SCH (20:19)
[2018-06-28] MEDS: TAMSULOSIN 0.4 MG CAPSULE PO SCH (20:19)
[2018-06-28] MEDS: Metoprolol TARTRATE Tab 50 MG TAB PO SCH (20:19)
[2018-06-29] MEDS ORDERED: LORazepam 1 MG TABLET PO ONE (00:39)
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
--- NOTE | 2018-06-29 09:37 | DI ---
MRI Brain WO Contrast 06/29/2018 7:00 AM History: [facility] DI ^left-sided weakness and abnormal CT scan Comparison: CT head 06/28/2018, MRI brain 01/05/2014. Technique: Routine noncontrast multiecho multiplanar MR imaging of the brain was performed. Findings: There is no evidence of acute or chronic hemorrhage. No extra-axial fluid collections are p resent. There is no focal mass or mass-effect. The ventricles and cisterns are prominent consistent w ith age related atrophy. Remote infarcts are noted in the left frontal lobe, the right basal ganglia, and right temporal lobe with associated ex vacuo dilatation of the lateral ventricles. There is norm al anatomic appearance of the midline structures. Confluent areas of T2/FLAIR hyperintensity are note d in the deep white matter, most likely due to chronic small vessel ischemia. There are 3 foci of T2/ FLAIR hyperintensity with associated restricted diffusion in the posterior aspect of the right carrera radiata. The cerebral vasculature is grossly normal in appearance. There is mild mucosal thickening of the maxillary sinuses. There are postsurgical changes of the bilateral globes. Impression: 1. There are 3 foci of T2/FLAIR hyperintensity with associated restricted diffusion in the posterior aspect of the right carrera radiata, concerning for acute ischemia. 2. There is evidence of remote multifocal infarcts and age related senescent changes that have not si gnificantly changed compared to prior imaging.
[2018-06-29] MEDS: ASPIRIN 81 MG (BABY) CHEWABLE TABLET PO SCH (10:13)
[2018-06-29] MEDS: LOSARTAN 50 MG TABLET PO SCH (10:14)
[2018-06-29] MEDS: Metoprolol TARTRATE Tab 50 MG TAB PO SCH ×3 (10:14→20:04)
[2018-06-29] MEDS: METFORMIN HCL PO SCH ×3 (10:25→20:13)
[2018-06-29] MEDS: LINAGLIPTIN PO SCH ×3 (10:25→20:13)
--- NOTE | 2018-06-29 10:44 | PDOC(PROG) ---
Interval History: Patient underwent physical therapy and occupational therapy evaluation it is very hard for him to pivot on his left leg and is very weak and required 2-3 people and assistance to avoid falls we discussed this with the family member and the patient. They're trying to move to [place]. I've gotten social media assistant involved most likely the said there is a really good [place] [facility] there she will try to get to address and give it to the social media assistant to see if they can get him in their in the meanwhile he will continue doing physical therapy and occupational therapy here. I also called Dr. Mireles back to evaluate the MRI scan which showed most likely looks like a new stroke and recommended to add Plavix to the therapy Objective : Data - Labs CBC and BMP: 06/28/18 08:35 06/28/18 08:35 Objective : Exam - General General Appearance: Cooperative - Respiratory Respiratory Exam: Clear to Auscultation - Bilaterally, Breathing Non Labored, Normal To Percussion, Normal to Percussion and Palpation - Cardiovascular Cardiovascular Exam: RRR, No Murmur, No Clicks, No Gallops, No Rubs, PMI Non- Displaced - GI/Abdominal GI/Abdominal Exam: Normal Bowel Sounds, Non Tender, Non Distended, Soft, No Masses, No Hepatomegaly, No Splenomegaly, No Organomegaly - Extremities Additional Extremities Exam Details: No different from yesterday but his difficulty in symptoms when he tries to get up or turn Assessment and Plan - Patient Problems (1) Left-sided muscle weakness Current Visit: Yes Status: Acute Comment: Most likely secondary to CVA we'll add Plavix to his aspirin as recommended by neurology Code(s): M62.81 - Muscle weakness (generalized) (2) Diabetes mellitus type II, controlled Current Visit: No Status: Acute Comment: Continue current medications Code(s): E11.9 - Type 2 diabetes mellitus without complications Qualifiers: Diabetes mellitus senior living insulin use: without senior living use Diabetes mellitus complication status: without complication Qualified Code(s): E11.9 - Type 2 diabetes mellitus without complications (3) Dyslipidemia Current Visit: No Status: Acute Onset Date: 03/11/12 Comment: Continue statin Code(s): E78.5 - Hyperlipidemia, unspecified
[2018-06-29] MEDS: CLOPIDOGREL 75 MG TABLET PO SCH (12:43)
--- NOTE | 2018-06-29 15:26 | OT.PROG ---
Progress Note Progress Note: S: pt was confused today. He did report that he wants to go home. O: pt was seen in his room and completed functional transfer to w/c apprx 10 ft with CGA for safety. He completed sit to stand with CGA from w/c to arm bike. He completed Ue bike for 8 min to increase activity tolerance. He transferred with CGA approx 25 to hand table. He completed putty, with B hands, clothspins, and x5 beads to increase dexterity of L hand. He transferred x1 more time to Nu step where PT took over therapy. A: pt needed simple cues today and is not aware of any safety concerns throughout transferring. The pt may benefit from 24 hr care. P: continue per POC.
--- NOTE | 2018-06-29 16:19 | PT.PROG ---
Progress Note Progress Note: S. Patient agreed to go to the therapy gym. O. Patient was wheeled to the therapy gym where he performed seated exercises in the form of; long arc quads, marches, ball squeezes, clam shells, resisted knee flexion all x 10 bilaterally with 2# and red thera band. Patient performed sit to stands x 10 then ambulated 20 feet then used the nu-step x 7 minutes then ambulated 70 feet and was wheeled back to his room where he was left in his chair with alarm and call light. A. patient tolerated therapy fair this afternoon, he required frequent verbal cues to stay on task and complete all exercises. Patient would continue to benefit from skilled therapy to increase strength, endurance and safety at this time. Patient would benefit from 24 hour care. P. continue POC.
[2018-06-29] MEDS: OMEPRAZOLE 20 MG CAPSULE PO SCH ×2 (19:21→20:05)
[2018-06-29] MEDS: TAMSULOSIN 0.4 MG CAPSULE PO SCH ×2 (19:21→20:03)
[2018-06-29] MEDS: ACETAMINOPHEN 325 MG TABLET PO PRN (19:21)
[2018-06-29] MEDS: Pravastatin 80mg Tab PO SCH ×2 (19:22→20:05)
[2018-06-30] MEDS: METFORMIN HCL PO SCH ×2 (08:33→20:20)
[2018-06-30] MEDS: CLOPIDOGREL 75 MG TABLET PO SCH (08:33)
[2018-06-30] MEDS: LINAGLIPTIN PO SCH ×2 (08:33→20:20)
[2018-06-30] MEDS: Metoprolol TARTRATE Tab 50 MG TAB PO SCH ×2 (08:33→20:20)
[2018-06-30] MEDS: ASPIRIN 81 MG (BABY) CHEWABLE TABLET PO SCH (08:34)
[2018-06-30] MEDS: LOSARTAN 50 MG TABLET PO SCH (08:34)
--- NOTE | 2018-06-30 08:59 | PTI REPORT ---
Thank you for the referral of Arvind Ndiaye. He was seen on 06/29/18 for an inpatient evaluation secondary to weakness. SUBJECTIVE: The patient is a 73-year-old male who we received inpatient initial evaluation orders for for a diagnosis of weakness. Per nursing staff, the patient is very agitated today and is requiring one-on-one assistance. The patient is a poor historian and is confused as to why he is in the hospital as he states he came in yesterday for a blood test for his diabetes. The patient denies any recent changes in his health but per his report, he was brought in due to left sided weakness. The patient has been hospitalized a few times recently due to weakness and has a previous history of stroke affecting the left side. The patient lives here in town with his . Per report, they are getting ready to move to [place], [place]. The patient generally uses a four wheeled walker for ambulation and denies any recent falls, but he does have a history of falls. PAST MEDICAL HISTORY: Past medical history can be found in the patient's medical record. OBJECTIVE FINDINGS: General observations: The patient is alert and oriented to the setting and is willing to participate with therapy. During simple tasks the patient did seem to get easily confused at times. Ambulation: We attempted ambulating with a front wheeled walker. The patient needed verbal cueing and min assist to stay within the walker. He ambulated 50 feet with cues. Once we got to the elevator the patient was confused and kept trying to leave the walker in front of the elevator and just walk on to the elevator. Therapy had to place the walker right in front of the patient and help get him placed into the center of the walker for him to use the walker. When the patient is ambulating he does have drop foot on the left side and ambulates with a knee flexed posture. As he fatigues, he becomes more unsafe with his ambulation. Strength: Manual muscle test was performed in a seated position. The patient demonstrates 3+/5 left lower extremity strength and 4/5 right lower extremity strength. ASSESSMENT: The patient has fair rehab potential secondary to his age and past medical history. Problem List: Decreased endurance Weakness Safety issues, especially with ambulation and transfers Short-Term Goals: To be met by discharge from inpatient: Patient will be able to ambulate at least 100 feet with appropriate assistive device safely with contact guard assist x1 for safety. Patient will be able to tolerate 30 minutes of physical therapy activity in order to improve his stamina and strength. Long-Term Goals: To be met following discharge from inpatient: USP goals will be dependent on patient's condition at time of discharge. TREATMENT PLAN: Patient will be seen B.I.D during the week and one time per day over the weekend as an inpatient to address the above goals and objectives. INITIAL TREATMENT: Treatment today consisted of the initial evaluation followed by one unit of functional activity. Please see objective findings. Following inpatient evaluation, the patient was brought down to therapy. He was left with occupational therapy for further assessment. MIGUEL
--- NOTE | 2018-06-30 10:09 | PDOC(PROG) ---
Interval History: Patient is doing well no complaints I did explain to him and his family did have 2 new strokes 2 mm each no chest pain nausea vomiting Objective : Data - Labs CBC and BMP: 06/28/18 08:35 06/28/18 08:35 Objective : Exam - General General Appearance: Cooperative - Respiratory Respiratory Exam: Clear to Auscultation - Bilaterally, Breathing Non Labored, Normal To Percussion, Normal to Percussion and Palpation - Cardiovascular Cardiovascular Exam: RRR, No Murmur, No Clicks, No Gallops, No Rubs, PMI Non- Displaced - GI/Abdominal GI/Abdominal Exam: Normal Bowel Sounds, Non Tender, Non Distended, Soft, No Masses, No Hepatomegaly, No Splenomegaly, No Organomegaly - Extremities Additional Extremities Exam Details: Left-sided weakness lower extremity more than upper - Neurological Neurological Exam: Alert Assessment and Plan - Patient Problems (1) Left-sided muscle weakness Current Visit: Yes Status: Acute Comment: Patient did have an old CVA in 2-2 mm CVAs please see MRI report discussed with Dr. Mireles and [facility] neurology recommended to add Plavix and continue PT OT unsure if these new strokes caused more weakness on the left side because of their size according to the neurologist Code(s): M62.81 - Muscle weakness (generalized) (2) Diabetes mellitus type II, controlled Current Visit: No Status: Acute Comment: Continue current meds Code(s): E11.9 - Type 2 diabetes mellitus without complications Qualifiers: Diabetes mellitus intermediate accountant insulin use: without correction use Diabetes mellitus complication status: without complication Qualified Code(s): E11.9 - Type 2 diabetes mellitus without complications (3) Dyslipidemia Current Visit: No Status: Acute Onset Date: 03/11/12 Comment: Continue current meds Code(s): E78.5 - Hyperlipidemia, unspecified - Assessment / Plan Additional Assessment/Plan Details: Was told the patient qualifies for inpatient because of his strokes will make him inpatient consult workforce planner for placement since he is not able to be taken care of at home by his and needing 24-hour care and halfway according to occupational therapy
--- NOTE | 2018-06-30 10:24 | OTI REPORT ---
Thank you for the referral of Arvind Ndiaye. He was seen on 06/29/18 for an occupational therapy inpatient evaluation secondary to weakness. SUBJECTIVE: The patient is a 73-year-old male who has a history of stroke with left sided weakness. His was present during part of the session today and reported that the last couple of days his left sided weakness has become increasingly worse and it has been more and more difficult to take care of him at home. He has had a few falls, but they have been more controlled falls. Typically before admission, the patient's had to help him a little bit with dressing tasks secondary to limited coordination with the left hand; however, he typically has his clothes handed to him and he can dress himself. The patient's does most of the cooking and housework. The patient did have some left foot drag with a wheeled walker. PAST MEDICAL HISTORY: Past medical history can be found in the patient's medical record. OBJECTIVE FINDINGS: Activities of daily living: The patient was asked to don lower extremity clothing. He was able to put his pants over his feet with minimal assistance. Once standing he needed min assist to pull pants to waist level. He required max assist to don socks and mod assist to doff socks which appeared to be secondary to left handed weakness. Transfers: The patient requires max assist for functional transfers as turning is very difficult. He demonstrated a lot of processing issues and needed a lot of verbal cues in order to lift his left lower extremity. A few times he was not able to lift the left lower extremity as it takes him increased time to process this. When he is able to understand, he does lift the left leg. Turning to the left is a lot more difficult than turning to the right. Ambulation: The patient has a lot of balance difficulties and almost fell a couple times just walking in the room. His left leg buckled on him at one time and he had difficulty standing with the walker. Range of motion: Upper extremity active range of motion in bilateral upper extremities is within normal limits on the right side. On the left side he has 0 to 130 degrees of shoulder flexion. Elbow flexion/extension has 80% motion. Wrist demonstrates 50 degrees of flexion and extension. Strength: Strength on the right side is 4+/5 throughout his shoulder, elbow, and wrist. Left shoulder flexion is 3+/5, abduction is 3+/5, elbow flexion/extension is 4/5, and wrist flexion/extension is 4/5. Sensation: The patient reports no numbness or tingling, but his reports are somewhat questionable. Cognition: We did complete the Clifford Cognitive Assessment (MoCA) with the patient secondary to the cognitive processing issues that we were noticing. Visuospatial/Executive: 03/21 He had difficulty following the letter/number sequence. He had difficulty copying the cube. For the clock, he was able to draw the [place] but only put 1, 2, 3, 5, and 5 after multiple cues. He was not able to draw the hands. Namin/3 Attention: 05/20 He did well with repeating digits forward and backward. He was able to subtract 7 from 93 but was not able to do numbers after that. Language: 03/19 He was able to repeat one sentence and had difficulty repeating the second sentence. He was only able to think of 5 words that began with the letter F. Abstraction: 0/2 Delayed recall: 0/5 Orientation: 04/22 He was able to state the month and the year but he thought we were at the library in the [facility]. ASSESSMENT: The patient is demonstrating a lot of difficulty with his processing abilities. At this time the patient's is highly considering going to a 24-hour care facility in [place] as she and her were both thinking of moving to [place] at some time within the next month. Short-Term Goals: To be met by discharge from inpatient: Patient will be able to dress self after set up with stand by assist. Patient will be able to complete functional stand pivot transfers with contact guard assist. Patient will improve upper extremity strength to 5/5 on the right and 4+/5 on the left. Patient will be able to complete donning and doffing of socks with min assist. Patient will be able to follow one step verbal commands with min assist. Long-Term Goals: To be met following discharge from inpatient: Patient will have 24-hour care for functional transfers and higher level ADLs. TREATMENT PLAN: Patient will be seen B.I.D during the week and one time per day over the weekend as an inpatient to address the above goals and objectives. INITIAL TREATMENT: Treatment today consisted of the initial evaluation activities only. MIGUEL
--- NOTE | 2018-06-30 10:41 | OT.PROG ---
Progress Note Progress Note: S: pt stated that he wanted to see his but agreed to therapy. O: tx consisted of functional transfer from recliner to w/c with FWW and CGA for safety, pt completed UBE x8 min and Ue RTB exercises in all planes of motion x20 each. A: pt tolerated session well. P: continue POC
--- NOTE | 2018-06-30 16:40 | OT.PROG ---
Progress Note Progress Note: S: pt reported that he may be moving to [facility]. He was more alert today. O: pt was seen in his room and completed sit to stand with Min A and completed transfer aprox 15 ft before sitting in w/c. He completed sit to stand form w/c with Richard and completed 12 min on Nu step. He then transferred to mat table to complete Ue exercises on pulleys' with 10 lbs in rows, bicep flex and shoulder Ext, RTB hor abd, and IROT/EROT x 15. He completed functional transfer back to his chair apprx 15 ft before returning to room in w/c. He was left upright in chair with call light within reach and alarm on. A: pt towards end of therapy began to drag L leg during transfers as he began to fatigue. He was much less confused today. P: continue POC.
--- NOTE | 2018-06-30 17:18 | PT.PROG ---
Progress Note Progress Note: S. Patient stated that he would go to the therapy gym. O. Patient was wheeled to the therapy gym where she performed seated; long arc quads, marches, heel toe raises, ball squeezes, clam shells, resisted knee flexion all x 10 bilaterally with red thera band and 2# weights. Patient ambulated 15 feet in the gym then used the nu-step x 5 minutes and was wheeled back to his room where he was left in his chair with alarm and call light. A. Patient tolerated therapy well this morning, he appeared to have increased cognition this morning. He would continue to benefit from skilled therapy to increase strength endurance and safety at this time. P. Continue POC.
--- NOTE | 2018-06-30 17:27 | PT.PROG ---
Progress Note Progress Note: S. Patient agreed to go to the therapy gym. O. Patient was wheeled to the therapy gym where he performed seated exercises in the form of; long arc quads, marches, ball squeezes, clam shells, resisted knee flexion all x 10 bilaterally with 2# and red thera band. Patient performed sit to stands x 10 then ambulated 20 feet then used the nu-step x 10 minutes then ambulated 50 feet and was wheeled back to his room where he was left in his chair with alarm and call light. A. patient tolerated therapy fair this afternoon, he required frequent verbal cues to stay on task and complete all exercises. Patient would continue to benefit from skilled therapy to increase strength, endurance and safety at this time. Patient would benefit from 24 hour care. P. continue POC.
[2018-06-30] MEDS: OMEPRAZOLE 20 MG CAPSULE PO SCH (20:20)
[2018-06-30] MEDS: TAMSULOSIN 0.4 MG CAPSULE PO SCH (20:20)
[2018-06-30] MEDS: Pravastatin 80mg Tab PO SCH (20:20)
[2018-07-01] MEDS: Metoprolol TARTRATE Tab 50 MG TAB PO SCH ×2 (09:05→20:19)
[2018-07-01] MEDS: CLOPIDOGREL 75 MG TABLET PO SCH (09:05)
[2018-07-01] MEDS: ASPIRIN 81 MG (BABY) CHEWABLE TABLET PO SCH (09:05)
[2018-07-01] MEDS: LOSARTAN 50 MG TABLET PO SCH (09:05)
[2018-07-01] MEDS: METFORMIN HCL PO SCH ×2 (09:05→20:19)
[2018-07-01] MEDS: LINAGLIPTIN PO SCH ×2 (09:05→20:19)
--- NOTE | 2018-07-01 09:53 | PDOC(PROG) ---
Interval History: Doing well no chest pain nausea vomiting feels back to his normal self he has great motor strength upper and lower extremity on the left side I cannot elicit any weakness just the incoordination while he walks and periods from previous stroke Objective : Data - Labs CBC and BMP: 06/28/18 08:35 06/28/18 08:35 Objective : Exam - General General Appearance: Cooperative - Respiratory Respiratory Exam: Clear to Auscultation - Bilaterally, Breathing Non Labored, Normal To Percussion, Normal to Percussion and Palpation - Cardiovascular Cardiovascular Exam: RRR, No Murmur, No Clicks, No Gallops, No Rubs, PMI Non- Displaced - GI/Abdominal GI/Abdominal Exam: Normal Bowel Sounds, Non Tender, Non Distended, Soft, No Masses, No Hepatomegaly, No Splenomegaly, No Organomegaly Assessment and Plan - Patient Problems (1) Left-sided muscle weakness Current Visit: Yes Status: Acute Comment: Continue PTOT small CVA 2 mm each as per neurology patient has a place in [place] and will be discharged Friday Code(s): M62.81 - Muscle weakness (generalized) (2) Diabetes mellitus type II, controlled Current Visit: No Status: Acute Comment: Continue home meds Code(s): E11.9 - Type 2 diabetes mellitus without complications Qualifiers: Diabetes mellitus mcfp insulin use: without intermediate accountant use Diabetes mellitus complication status: without complication Qualified Code(s): E11.9 - Type 2 diabetes mellitus without complications (3) Dyslipidemia Current Visit: No Status: Acute Onset Date: 03/11/12 Comment: Continue statin Code(s): E78.5 - Hyperlipidemia, unspecified
--- NOTE | 2018-07-01 11:30 | PT.PROG ---
Progress Note Progress Note: S. Patient stated that he would go to the therapy gym. O. Patient was wheeled to the therapy gym where she performed seated; long arc quads, marches, heel toe raises, ball squeezes, clam shells, resisted knee flexion all x 10 bilaterally with red thera band and 2# weights. Patient ambulated 75 feet around the gym then used the nu-step x 10 minutes and was wheeled back to his room where he was left in his chair with alarm and call light. A. Patient tolerated therapy well this morning. He would continue to benefit from skilled therapy to increase strength, endurance and safety at this time. P. Continue POC.
--- NOTE | 2018-07-01 16:46 | OT.PROG ---
Progress Note Progress Note: S: pt was confused today. He was unsure of where he was at today. O: Pt was seen in his room and completed sit to stand with Min a. He completed transfer to [facility] approx 10 ft away needing Mod A x1 to prevent a fall. He was then transferred downstairs in [facility]. He completed time on Nu step but had to stop to use restroom. He completed transfer entire way to therapy with use of walker and CGA at all times for assistance. He needed simple cues to complete toileting. He also completed hygiene at sink but needed vc's to transfer with walker to complete. He then returned to gym. He completed Ue exercises with GTB in all planes x15 to increase strength and function. He also completed #2 box before transferring back to his / apprx 10 ft away. He was left upright in chair with alarm on. A: pt was increasingly confused today and his activity tolerance was rather low. He did need some extra assistance to prevent falls today. He also required simple cues on steps to take for toileting and hygiene activity. P: continue per pOC.
[2018-07-01] MEDS: Pravastatin 80mg Tab PO SCH (20:19)
[2018-07-01] MEDS: OMEPRAZOLE 20 MG CAPSULE PO SCH (20:19)
[2018-07-01] MEDS: TAMSULOSIN 0.4 MG CAPSULE PO SCH (20:19)
--- NOTE | 2018-07-02 08:49 | OT AM DAY ---
Diagnosis : Weakness AM - Occupational Therapy S: The patient reports that he is doing okay. He still has his foot drag. O: Today we worked on bathroom tasks. The patient was able to get to the bathroom with mod assist. He was able to complete toilet hygiene with min assist. He was able to don his shorts with contact guard assist. He was able to stand at sink x3 minutes but needed set up for his toothbrush and toothpaste. The patient then needed cues to turn appropriately and in the walker as he tends to keep it a little bit to the side. He ambulated approximately 30 feet, came fatigued, and needed to sit. He was dragging his left foot and needed min assist to keep his balance. Downstairs in therapy we worked on fine motor coordination and strength for his left upper extremity including power web, digi-flex, rice bucket, coins (which were very difficult for the patient), and theraband resisted horizontal abduction, biceps, internal/external rotation, shoulder extension, and shoulder adduction. A: The patient is still demonstrating safety concerns as well as left sided weakness that does affect his functional transfers and abilities to perform ADLs. P: Continue seeing patient BID during the week and one time per day over the weekend for upper extremity strengthening, ADLs, and overall functional mobility. MTDD
[2018-07-02] MEDS: LINAGLIPTIN PO SCH ×2 (09:00→20:10)
[2018-07-02] MEDS: METFORMIN HCL PO SCH ×2 (09:00→20:10)
[2018-07-02] MEDS: Metoprolol TARTRATE Tab 50 MG TAB PO SCH ×2 (09:01→20:10)
[2018-07-02] MEDS: LOSARTAN 50 MG TABLET PO SCH (09:01)
[2018-07-02] MEDS: CLOPIDOGREL 75 MG TABLET PO SCH (09:01)
[2018-07-02] MEDS: ASPIRIN 81 MG (BABY) CHEWABLE TABLET PO SCH (09:01)
--- NOTE | 2018-07-02 10:02 | OT.PROG ---
Progress Note Progress Note: S: pt reported his has not brought up any clean cloths yet. He thinks he is going to [facility] to a care facility. He acknowledged that he leans to his left a lot especially when dressing. O: pt was seen in his room and completed sit to stand with CGA for safety and transferred to [facility] approx 15 ft. Pt was transferred to shower room in [facility]. Set up for the shower was completed for him by nursing. Pt doffed UE/Le clothing Ind. Overall he completed showering with SBA and assistance with standing for safety. He completed drying after shower with MOd Ind as it took him longer to complete. He then completed donning of clothing with SBA as well. He completed transfer back to [facility] apprx 10 ft and was returned to his room. His weigh was taken and then he returned to his chair. He was left upright in chair with alarm on. A: pt participated well in showering activity and was much less confused and more alert. He still requires sBA for safety as he remains a fall risk. He was fatigued towards the end of showering and will participate in PT later in morning. P: Continue per POC.
[2018-07-02 11:09] VITALS: O2SAT 93
--- NOTE | 2018-07-02 11:31 | DCSUMMARY ---
Hospitalization Summary Hospital Course: Final Discharge Diagnosis: Current Visit Problems Problem Status Onset Code Left-sided muscle weakness Acute M62.81 CVA (cerebral vascular accident) Acute I63.9 Diagnostic Data, Laboratory Data, and Procedures of Signifigance: CBC and BMP 06/28/18 08:35 06/28/18 08:35 History and Physical pertinent to Admission: Course of Hospitalization: This very nice 73-year-old gentleman with past medical history significant for CVA on aspirin with residual left-sided weakness felt weaker at home was brought to the ER and MRI revealed the 2 new CVAs. Small in size about [address] mm of consult [address] Tee and neurologist and this was his evaluation after he saw the MRI. He recommended to add Plavix to his regimen of 75 mg daily and to continue PT and OT. Patient is already on a statin as well the and social science analyst had multiple meetings they are moving to [place] and it was recommended by physical therapy and occupational therapy that the patient needed 24-hour care to afford a found him a place in a intermediate [place] was accepted and will be brought there by his by private vehicle in the morning. Patient was seen today he feels great back to his baseline he has no complaints MRI results are at the bottom of this discharge summary On the date of discharge, the patient was examined: Gen.: No acute distress, alert, nontoxic Heart: Regular rate and rhythm, no murmurs, clicks, gallops, or rubs Lungs: Clear to auscultation bilaterally, breathing is nonlabored Abdomen/GI: Normal tones on auscultation, soft, nontender, nondistended Musculoskeletal/extremities: No clubbing, cyanosis, or edema Vitals reviewed and are listed below Vital Signs (24 hrs) 07/01/18 13:00 07/01/18 16:38 07/01/18 19:00 Temperature 97.1 F 97.5 F Pulse Rate [Apical] 62 Pulse Rate [Pulse Oximeter Left] 63 66 66 Respiratory Rate 16 16 Blood Pressure [Left Arm] 143/66 134/66 Blood Pressure [Right Arm] Pulse Ox 92 94 07/01/18 19:32 07/02/18 00:32 07/02/18 05:00 Temperature 97.4 F 97.8 F 98.0 F Pulse Rate [Apical] Pulse Rate [Pulse Oximeter Left] 66 70 64 Respiratory Rate 20 20 20 Blood Pressure [Left Arm] 140/67 122/53 Blood Pressure [Right Arm] 127/55 Pulse Ox 92 93 93 07/02/18 06:59 07/02/18 11:08 Temperature 97.2 F 97.2 F Pulse Rate [Apical] Pulse Rate [Pulse Oximeter Left] 59 L 63 Respiratory Rate 17 19 Blood Pressure [Left Arm] Blood Pressure [Right Arm] 128/71 118/56 Pulse Ox 92 93 Assessment and Plan: 1. As per discharge assessments above 2. Disposition: Home to be transported by his to [place] at a intermediate where he was accepted this was all arranged with manager social work 3. Condition on discharge, stable and improved. 4. Diet: regular diet 5. Activities: resume normal activities at as per physical therapy recommendation 6. Follow-Up: 1. PCP 2. 7. Medications at the Time of Discharge: Home Medications Medication Instructions Recorded Confirmed Type Aspirin [Baby Aspirin] 2 tab ORAL QD tab 09/05/10 06/28/18 History Docusate Sodium [Colace] 1 cap ORAL BID cap 01/31/12 06/28/18 History Multivitamin [Daily Vitamin] 1 tab ORAL QD tab 01/31/12 06/28/18 History Calcium Carb, Citrate/Vit D3 1 ea PO DAILY 09/10/12 06/28/18 History [Calcium + D3 ER Tablet] Walker [Ultra-Light Rollator] 1 ea MC ONCE #1 ea 10/26/14 06/28/18 History Clotrimazole 1 applic TOPICAL BID #60 tube 09/25/15 06/28/18 History amlodipine 10 mg tablet 10 mg PO QD #90 tab 05/30/17 06/28/18 Rx Jentadueto 2.5 mg-1,000 mg tablet 1 tab PO BID #180 tab NS 10/10/17 06/28/18 Rx losartan 100 mg tablet 100 mg PO QD #90 tab 10/10/17 06/28/18 Rx omeprazole 20 mg capsule,delayed 20 mg PO QHS #90 cap 10/10/17 06/28/18 Rx release tamsulosin 0.4 mg capsule 0.4 mg PO QHS #90 tab 10/10/17 06/28/18 Rx fluticasone 50 mcg/actuation nasal 1 spray INASL QDAY PRN 01/12/18 06/28/18 His tory spray,suspension metoprolol tartrate 50 mg tablet 50 mg PO BID #7 tab 03/09/18 06/28/18 Rx pravastatin 80 mg tablet 80 mg PO QHS #90 tab 06/02/18 06/28/18 Rx Blood Sugar Diagnostic [Contour 0 ea .ROUTE .MEDSUPPLY 06/28/18 06/28/18 History Test Strip] Clopidogrel [Plavix] 75 mg PO DAILY #30 tab 07/02/18 Rx 8. Time, care, counseling and coordination of care for this discharge is greater than [address] [facility] [facility] [place] [address] PH: DD: [phone] FAX: [phone] ~DIAGNOSTIC IMAGING REPORT~ Patient: Arvind Ndiaye : 1945 Sex: M Age: 73 Exam Name: MRI Brain WO Contrast Exam Date: 06/29/18 Report # : [id number] CPT Code: 57592 EMR/MR #: [id number] Ordering: CINTHYA MAJANO Admiting: CINTHYA MAJANO MD. Primary: Cruz Kurtz MD Attending: CINTHYA MAJANO MD. Signed MRI Brain WO Contrast 06/29/2018 7:00 AM History: [facility] ^left-sided weakness and abnormal CT scan Comparison: CT head 06/28/2018, MRI brain 01/05/2014. Technique: Routine noncontrast multiecho multiplanar MR imaging of the brain was performed. Findings: There is no evidence of acute or chronic hemorrhage. No extra-axial fluid collections are present. There is no focal mass or mass-effect. The ventricles and cisterns are prominent consistent with age related atrophy. Remote infarcts are noted in the left frontal lobe, the right basal ganglia, and right temporal lobe with associated ex vacuo dilatation of the lateral ventricl es. There is normal anatomic appearance of the midline structures. Confluent areas of T2/FLAIR hyperintensity are noted in the deep white matter, most likely due to chronic small vessel ischemia. There are 3 foci of T2/FLAIR hyperintensity with associated restricted diffusion in the posterior aspect of the right carrera radiata. The cerebral vasculature is grossly normal in appearance. There is mild mucosal thickening of the maxillary sinuses. There are postsurgical changes of the bilateral globes. Impression: 1. There are 3 foci of T2/FLAIR hyperintensity with associated restricted diffusion in the posterior aspect of the right carrera radiata, concerning for acute ischemia. 2. There is evidence of remote multifocal infarcts and age related senescent changes that have not significantly changed compared to prior imaging. Dictated By: 06/29/18 0926 KANDY CERVANTES MD. Signed By: 06/29/18 0937 KANDY CERVANTES MD. Exam - Vitals Vital Signs: Vital Signs Temperature 97.2 F Temperature Source Temporal Artery Scan Pulse Rate [Apical] 62 Pulse Rate [Pulse Oximeter 63 Left] Pulse Rate 66 Respiratory Rate 19 Blood Pressure [Left Arm] 122/53 Blood Pressure [Right Arm] 118/56 Pulse Ox 93 Oxygen Delivery Method Room Air Height 5 ft 10 in Weight 227 lb 6.4 oz Patient Problems - Patient Problem List (1) Left-sided muscle weakness Current Visit: Yes Status: Acute Code(s): M62.81 - Muscle weakness (g eneralized) Category: Medical (2) Diabetes mellitus type II, controlled Current Visit: No Status: Acute Code(s): E11.9 - Type 2 diabetes mellitus without complications Qualifiers: Diabetes mellitus intermediate insulin use: without intermediate use Diabetes mellitus complication status: without complication Qualified Code(s): E11.9 - Type 2 diabetes mellitus without complications Category: Medical (3) Dyslipidemia Current Visit: No Status: Acute Onset Date: 03/11/12 Code(s): E78.5 - Hyperlipidemia, unspecified Category: Medical
--- NOTE | 2018-07-02 12:01 | PT.PROG ---
Progress Note Progress Note: S. Patient stated that he would go for a walk. O. Patient ambulated 75 feet to the wheelchair and was wheeled back to his room where he ambulated 15 feet back to his chair and was left with alarm and call light. A. Patient tolerated ambulation fair, he required a seated rest break. He would continue to benefit from skilled therapy to increase strength, endurance and safety at this time. P. Continue POC. Plan to discharge to intermediate facility in [place] 07/03/18.
--- NOTE | 2018-07-02 16:30 | OT.PROG ---
Progress Note Progress Note: S: pt was in good mood and appeared to be ok with going to [facility]. O: pt was seen in his room and completed transfer apprx 30 ft before sitting in w/c. He completed 6 min on Ue bike to increase activity tolerance. He then transferred apprx 25 ft to mat table. He completed x10 sit to stands needing min A to completed 3 of them. He completed Ue exercises with GTb in all planes x15 with BUE's to increase strength. A: pt needed mod A to prevent fall at least once today. He has difficulty turning as left leg occasionally does not want to follow. P: continue to prepare pt for d/c to care facility in [facility].
[2018-07-02] MEDS: TAMSULOSIN 0.4 MG CAPSULE PO SCH (20:10)
[2018-07-02] MEDS: OMEPRAZOLE 20 MG CAPSULE PO SCH (20:10)
[2018-07-02] MEDS: Pravastatin 80mg Tab PO SCH (20:10)
[2018-07-02 20:19] VITALS: RESP 20
[2018-07-02] MEDS: ACETAMINOPHEN 325 MG TABLET PO PRN (20:31)
[2018-07-03] MEDS: CLOPIDOGREL 75 MG TABLET PO SCH (09:25)
[2018-07-03] MEDS: METFORMIN HCL PO SCH (09:25)
[2018-07-03] MEDS: LOSARTAN 50 MG TABLET PO SCH (09:25)
[2018-07-03] MEDS: LINAGLIPTIN PO SCH (09:25)
[2018-07-03] MEDS: Metoprolol TARTRATE Tab 50 MG TAB PO SCH (09:25)
[2018-07-03] MEDS: ASPIRIN 81 MG (BABY) CHEWABLE TABLET PO SCH (09:25)
[2018-07-03 09:55] VITALS: BP 138/46; TEMP 97.8
--- NOTE | 2018-07-03 11:27 | PT.PROG ---
Progress Note Progress Note: S. Patient stated that he would go to the therapy gym. O. Patient was wheeled to the therapy gym where she performed seated; long arc quads, marches, heel toe raises, ball squeezes, clam shells, resisted knee flexion all x 15 bilaterally with red thera band and 2# weights and red thera bands. Patient ambulated 75 feet to the wheelchair and was wheeled back to his room where he was left in his chair with alarm and call light. A. Patient tolerated therapy well this morning. He would continue to benefit from skilled therapy to increase strength, endurance and safety at this time. P. plan to discharge to [facility] facility.
--- NOTE | 2018-07-03 16:22 | OT.PROG ---
Progress Note Progress Note: S: pt stated that he was feeling okay adn was not looking forward to being in a car all day. O: tx consisted of UBE x10 min, UE RTB exercises in all planes of motion x 15 each, 2# UE exercises of biceps, chest press and shoulder press x15 each, 4# BUE exercise of shoulder flexion x15, ADL task of standing toileting task where pt completed toileting tasks and hygiene with SBA for Safety. A: pt tolerated session well. P: pt is discharged from skilled OT services due to discharge from hospital.
== END 2018-07-03 10:13 | DRG 65 ==
LOC: MED/SURG 08:45 → ER 08:45 → MED/SURG 12:45
PROVIDERS: ADMIT Internal Medicine; ATTEND Internal Medicine